=== PATIENT | male | born 1955 | race Caucasian/White ===

== ENCOUNTER → 2020-07-11 10:59 | Outpatient (CLI) | payer MEDICARE, SELFPAY ==
[2020-07-11 12:37] LABS: Hemoglobin A1c 5.8 % (3.8-5.6)
[2020-07-11 12:43] LABS: Microalbumin,Random Urine 6.1 mg/L (NO RANGE EST.); Microalbumin:Creatinine Ratio 30.2 mg/g CRE (<30 mg/g CRE)
[2020-07-11 12:59] LABS: ALB/GLOB Ratio 1.1 RATIO (0.9-2.4); AST(SGOT) 19 U/L (15-37); Alanine Aminotransfer ALT/SGPT 26 U/L (16-61); Albumin, Serum 3.9 g/dL (3.2-5.0); Alkaline Phosphatase 74 U/L (45-117); Anion Gap 10 (5-15); BUN 19 mg/dL (7-18); BUN/Creat Ratio 16.7 RATIO (10-20); Calcium,Total 9.1 mg/dL (8.5-10.1); Chloride 105 mmol/L (98-107); Cholesterol 175 mg/dL (200); Creatinine, Serum 1.14 mg/dL (0.70-1.30); EST Glomerular Filtration Rate 68 mL/min (>60); Est Glom Filt Rate - Afr Amer 83 mL/min (>60); Globulin 3.5 g/dL (2.2-4.2); Glucose 104 mg/dL (74-106); High Density Lipoprotein 48 mg/dL; Protein, Total 7.4 g/dL (6.4-8.2); Sodium Level 138 mmol/L (136-145); Triglycerides 118 mg/dL; Very Low Density Lipoprotein 24 mg/dL (5-40)
== END ==
DX: E11.9 Type 2 diabetes mellitus without complications (principal); I10 Essential (primary) hypertension; E78.5 Hyperlipidemia, unspecified
CPT/HCPCS: 36415; 80053; 80061; 82043; 82570; 83036

== ENCOUNTER 2021-07-12 10:29 | Outpatient (CLI) | payer MEDICARE, SELFPAY ==
[2021-07-12 10:53] LABS: Absolute Lymphocyte Count 2.41 X10^3/uL (0.83-4.51); Absolute Neutrophil Count 4.8 X10^3/uL (2.0-7.7); Basophil# 0.07 X10^3/uL; Basophil% 0.8 % (0-1); Eosinophil# 0.18 X10^3/uL; Eosinophils% 2.2 % (0-5); Hematocrit 48.7 % (40-54); Hemoglobin 16.7 g/dL (13.0-16.5); Lymphocyte # 2.41 X10^3/ul (0.83-4.51); Lymphocyte % 28.8 % (19-41); Mean Corp Hgb Conc 34.3 g/dL (32-36); Mean Corpuscular Hgb 31.8 pg (27.0-32.0); Mean Corpuscular Volume 92.8 fL (80-94); Mean Platelet Vol. 9.4 fl (6.2-12.0); Monocyte# 0.85 X10^3/uL; Monocyte% 10.2 % (0-10); NRBC Flagged by Analyzer 0 % (0-5); Neutrophil # 4.82 X10^3/uL (2.7-7.7); Neutrophil % 57.6 % (47-70); Platelet Count 313 K/mm3 (150-450); RBC Distribution Width CV 13.2 % (11.6-14.6); RBC Distribution Width SD 44.9 fl (35.1-43.9); Red Blood Count 5.25 M/mm3 (4.6-6.2); White Blood Count 8.4 K/mm3 (4.4-11.0)
[2021-07-12 11:33] LABS: ALB/GLOB Ratio 1.1 RATIO (0.9-2.4); AST(SGOT) 29 U/L (15-37); Alanine Aminotransfer ALT/SGPT 38 U/L (16-61); Alkaline Phosphatase 72 U/L (45-117); Anion Gap 5 (5-15); BUN 21 mg/dL (7-18); BUN/Creat Ratio 18.1 RATIO (10-20); Calcium,Total 8.6 mg/dL (8.5-10.1); Chloride 105 mmol/L (98-107); Cholesterol 179 mg/dL (200); Creatinine, Serum 1.16 mg/dL (0.70-1.30); EST Glomerular Filtration Rate 67 mL/min (>60); Est Glom Filt Rate - Afr Amer 81 mL/min (>60); Globulin 3.6 g/dL (2.2-4.2); Glucose 107 mg/dL (74-106); High Density Lipoprotein 44 mg/dL; PSA,Total - Annual Screen 2.04 ng/mL (0.00-4.00); Protein, Total 7.6 g/dL (6.4-8.2); Sodium Level 137 mmol/L (136-145); Thyroid Stim Hormone (TSH) 1.22 uIU/mL (0.358-3.74); Triglycerides 49 mg/dL; Very Low Density Lipoprotein 10 mg/dL (5-40)
== END 2021-07-12 23:59 | disposition home or self-care (01) ==
LOC: LAB 10:30
DX: E11.9 Type 2 diabetes mellitus without complications (principal); Z12.5 Encounter for screening for malignant neoplasm of prostate
CPT/HCPCS: 36415; 80053; 80061; 82043; 84153; 84443; 85025; G0103

== ENCOUNTER 2021-08-03 07:42 | Outpatient (CLI) | payer MEDICARE, SELFPAY ==
--- NOTE | 2021-08-03 07:45 | CT_ITS ---
STUDY: LOW DOSE CT LUNG CANCER SCREENING REASON FOR EXAM: Male, 66 years old. NICOTINE DEPENDENCE. The patient smoked 1 pack per day for 50 years. RADIATION DOSAGE (If Supplied By Facility): CTDIvol = ( 4.02 ) mGy, DLP = ( 133.91 ) mGycm TECHNIQUE: No contrast was administered. Low dose technique was utilized (average mAS-38 and kVp 120). 1.25 mm axial source images with a slice interval of 1.25-mm were reconstructed in lung windows. 2.5 mm axial source images with a slice interval of 2.5-mm were reconstructed in lung windows. 5.0 mm axial source images with a slice interval of 5.0-mm were reconstructed in soft tissue windows. Nodule measured using lung windows on PACS and/or independent workstation with automated measurement of minimum and maximum diameter. Nodule measurement reported as average diameter rounded to the nearest whole number. Growth is defined as an increase ins size of greater than 1.5 mm. COMPARISON: None. NODULES: No suspicious nodules are seen. Emphysema: Hyperinflation. Emphysematous changes more prominent in the upper lobes. Findings suggest some mild linear scarring in the anterior medial aspect of the right middle lobe as well as the lingular segment of the left upper lobe. Endobronchial lesion: None Aorta: Mild atherosclerotic plaque formation of the aortic arch. Coronary arteries: Coronary artery calcification. Heart: Unremarkable Pulmonary artery: Unremarkable Mediastinal nodes: Small mediastinal lymph nodes. Other chest and abdominal findings: CT/Low Dose CT Lung Screening IMPRESSION: Lung-RADS category 2 - Continue annual screening with LDCT in 12 months. IMPORTANT NOTES FOR USE: ACR Lung-RADS Version 1.1 Assessment Categories Release Date: 2018 Category: Coded 0-4 bases on nodule(s) with highest degree of suspicion. Negative screen is defined as categories 1 and 2; a positive screen is defined as categories 3 and 4. Category 3 and 4A nodules that are unchanged on interval CT should be coded as category 2, and individuals returned to screening in 12 months. Category 4X: Category 3 or 4 nodules with additional imaging findings that increase the suspicion of lung cancer, such as spiculation, GGN that doubles in size in 1 year, enlarged lymph notes, etc. Category Modifiers: S (significant finding unrelated to lung cancer) Electronically Signed: Todd Hunter MD at 12:57 EDT ,
== END 2021-08-03 23:59 | disposition home or self-care (01) ==
LOC: CT 07:43
PROVIDERS: Referring Provider Nurse Practitioner Adult Health; Visit Provider Nurse Practitioner Adult Health
DX: F17.210 Nicotine dependence, cigarettes, uncomplicated (principal)
CPT/HCPCS: 71271

== ENCOUNTER 2021-11-16 07:17 | Day surgery (SDC) | payer MEDICARE, SELFPAY ==
[2021-11-16] VITALS (8 sets, daily range): BP systolic 82–118; BP diastolic 59–78; PULSE 47–67; RESP 16–17; TEMP 36.1–36.6; O2SAT 94–98; BMI 31.4
--- NOTE | 2021-11-16 | COLBX_PTH ---
PATIENT: LAN GUADALUPE LOC: EN U#:[id number] AGE/SX: 66/M ROOM: RE11/16/[address]: Dr. Casey Rodriguez DO : 1955 BED: DIS: 11/16/2021 SPEC #: [id number] RECD: 11/16/21 11:07 STATUS: EVIN EDWARD #: [id number] KOBY: 11/16/21 00:[address]: Casey Rodriguez DEPT: SURGICAL PATHOLOGY RECD BY: Osiel Wood ENTERED: 11/16/21 11:07 SP TYPE: COLON BX BABAR DR: Adia Cochran, PSYCHIATRIC NURSING ASSISTANT-C [facility] Tissues: A - Transverse colon B - Rectum, NOS Procedures: Surgery Specimen Level IV HEADER OPERATION: Colonoscopy ? open access (MAC), biopsy PRE-OP DIAGNOSIS: Screening TISSUE SUBMITTED: A ? Transverse polyp biopsy, B ? Rectal polyp biopsy MICROSCOPIC DIAGNOSIS A. Transverse colon polyp, biopsy: Fragments of hyperplastic polyp. B. Rectal polyp, biopsy: Hyperplastic polyp. JESÚS:isaak 11/17/2021 MICROSCOPIC DESCRIPTION Slides are reviewed. GROSS DESCRIPTION A - Received in fixative is one container labeled with the patient's name and designated transverse polyp biopsy. The specimen consists of two irregular fragments of light whitten soft tissue that in aggregate measure 0.8 x 0.4 x 0.1 cm. The specimen is totally submitted in one cassette. B - Received in fixative is one container labeled with the patient's name and designated rectal polyp. The specimen consists of one irregular fragment of light whitten soft tissue that measures 0.3 x 0.2 x 0.1 cm. The specimen is totally submitted in one cassette. / JESÚS:isaak 11/16/2021 TC:1 [facility]: [id number] x2
--- NOTE | 2021-11-16 07:22 | HP.PCM_ITS ---
[facility] - General General Date of Admission: 11/16/21 Date of Service: 11/16/21 Chief Complaint: Screening colonoscopy [facility] Narrative CARLO GUADALUPE, is a very pleasant 66-year-old gentleman with past medical history of hypercholesterolemia type 2 diabetes and BPH who presents here for screening colonoscopy. He does not have any problems with his bowels. He does not have any nausea vomiting or diarrhea. Does have history of hemorrhoids whi ch are treated. His bowel patterns have been normal. Is not take any stool softeners or laxatives to go to the bathroom. He is not seeing any blood per rectum. [facility] Medical History (Updated 11/14/21 @ 11:02 by Sparkle Lowe) Arthritis Back pain Diabetes Heartburn High cholesterol History of pain when walking History of stress test Hypertension Injury of back Marijuana use Open wound Shortness of breath on exertion Smoker Wears dentures Wears glasses Home Medications ezetimibe 10 mg tablet 10 mg PO QHS 11/14/21 [History Last Taken Unknown] gemfibrozil 600 mg tablet 600 mg PO BID 11/14/21 [History Last Taken Unknown] hydrochlorothiazide 12.5 mg capsule 12.5 mg PO DAILY 11/14/21 [History Last Taken Unknown] lisinopril 20 mg tablet 20 mg PO QHS 11/14/21 [History Last Taken Unknown] metformin 750 mg tablet,extended release 24 hr 750 mg PO DAILY 11/14/21 [History Last Taken Unknown] tamsulosin 0.4 mg capsule 0.4 mg PO QHS 11/14/21 [History Last Taken Unknown] Allergy/AdvReac Type Severity Reaction Status Date / Time atorvastatin [From Lipitor] Allergy Severe Pain in Verified 11/14/21 10:38 joints Surgical History (Updated 11/14/21 @ 11:02 by Sparkle Lowe) Hx of bladder repair surgery Hx of hemorrhoidectomy Hx of pelvic surgery Hx of tonsillectomy Hx of umbilical hernia repair Social History Smoking Status: Current every day smoker tobacco type: cigarettes ROS Review of Systems ROS Unobtainable: other Constitutional Constitutional: Denies fatigue, fever(s), poor appetite, weight gain or weight loss ENT HEENT: Denies mouth lesions Cardiovascular Cardiovascular: Denies abdominal bloating, abdominal edema or abdominal pain Respiratory/Chest Respiratory/Chest: Denies change in mental status, change in phlegm color, chest congestion or chest tightness Gastrointestinal Gastrointestinal: Denies belching, bloating, change in bowel habits, change in stool character, chewing difficulty, coffee ground emesis, constipation, cramping, diarrhea, dyspepsia, dysphagia, early satiety, excessive flatus, fecal incontinence, heartburn, hematemesis, hematochezia, hemorrhoids, loose stools, melena, nausea, odynophagia, rectal bleeding, tenesmus, vomiting or weight changes Genitourinary Genitourinary: Denies abdominal discomfort, burning urination or itching Musculoskeletal Musculoskeletal: Reports as per HPI; Denies muscle weakness or myalgias Integumentary Integumentary: Denies jaundice Neurologic Neurologic: Denies lack of coordination or weakness Psychiatric Psychiatric: Denies confusion, depression, memory loss, mood swings, paranoia or suicidal ideation Endocrine Endocrinology: Denies systems reviewed and no addt'l complaints, except as documented Hematologic/Lymphatic Hematologic/Lymphatic: Denies anemia, easy bleeding, easy bruising or lymphadenopathy Allergic/Immunologic Allergic/Immunologic: Denies systems reviewed and no addt'l complaints, except as documented Physical Exam Const alert General Appearance: cooperative Orientation / Consciousness: oriented to person HEENT hearing grossly normal bilaterally Head and Scalp: normal to inspection Face and Sinus: face symmetric Nose: external nose normal Mouth: oral and palatal mucosa normal Eyes conjunctivae normal General Eye: normal appearance of both eyes Neck full ROM General: normal visual inspection Lymph Lymphatic: no lymphadenopathy noted Chest inspection of chest normal and palpation of chest normal Chest: symmetrical chest wall rise Resp normal respiratory effort Effort and Inspection: able to speak in complete sentences Cardio regular rate GI non-distended Percussion: normal to percussion Rectal Exam: deferred Neuro Speech: speech normal Gait (Neuro): normal gait Assessment & Plan Assessment/Plan (1) Encounter for screening for malignant neoplasm of colon: PLAN: Carlo will undergo a screening colonoscopy. He was explained alternatives, risk, benefits including not withstanding bleeding, infection, sepsis, perforation, need for emergent urgent . He will have an ASA of 1.
[2021-11-16] MEDS: Lactated Ringers 1,000 ML 15 ML IV (07:30)
[2021-11-16 08:20] LABS: Bedside Glucose 127 mg/dL (74-106)
--- NOTE | 2021-11-16 08:48 | OP.COLON_ITS ---
Patient Name: Carlo Hammonds Procedure Date: 11/16/2021 8:15 AM Date of : 1955 Age: 66 Procedure: Colonoscopy Indications: Screening for colorectal malignant neoplasm Providers: Casey Rodriguez DO Referring MD: Oksana Iyer [facility] Medicines: Monitored Anesthesia Care Patient Profile: This is a 66 year old male. Refer to note in patient chart for documentation of history and physical. Last Colonoscopy: 10 years ago. Complications: No immediate complications. Procedure: Pre-Anesthesia Assessment: - Prior to the procedure, a History and Physical was performed, and patient medications and allergies were reviewed. The patient is competent. The risks and benefits of the procedure and the sedation options and risks were discussed with the patient. All questions were answered and informed consent was obtained. Patient identification and proposed procedure were verified by the physician in the pre-procedure area. Mental Status Examination: alert and oriented. Airway Examination: normal oropharyngeal airway and neck mobility. Respiratory Examination: clear to auscultation. CV Examination: normal. Prophylactic Antibiotics: The patient does not require prophylactic antibiotics. Prior Anticoagulants: The patient has taken no previous anticoagulant or antiplatelet agents. ASA Grade Assessment: II - A patient with mild systemic disease. After reviewing the risks and benefits, the patient was deemed in satisfactory condition to undergo the procedure. The anesthesia plan was to use moderate sedation / analgesia (conscious sedation). Immediately prior to administration of medications, the patient was re-assessed for adequacy to receive sedatives. The heart rate, respiratory rate, oxygen saturations, blood pressure, adequacy of pulmonary ventilation, and response to care were monitored throughout the procedure. The physical status of the patient was re-assessed after the procedure. After I obtained informed consent, the scope was passed under direct vision. Throughout the procedure, the patient's blood pressure, pulse, and oxygen saturations were monitored continuously. The adult colonoscope was introduced through the anus and advanced to the terminal ileum. The colonoscopy was performed without difficulty. The patient tolerated the procedure well. The quality of the bowel preparation was adequate. Moderate Sedation: Moderate (conscious) sedation was personally administered by an anesthesia professional. The following parameters were monitored: oxygen saturation, heart rate, blood pressure, and response to care. Scope In: 8:23:47 AM Scope Withdrawal Time 0 hours 11 minutes 25 seconds Scope Out: 8:38:39 AM Total Procedure Duration Time 0 hours 14 minutes 52 seconds Findings: Hemorrhoids were found on perianal exam. A 5 mm polyp was found in the rectum transverse colon. The polyp was sessile. The polyp was removed with a jumbo cold forceps. Resection and retrieval were complete. Verification of patient identification for the specimen was done. Estimated blood loss was minimal. Impression: - Hemorrhoids found on perianal exam. - One 5 mm polyp in the rectum in the transverse colon, removed with a jumbo cold forceps. Resected and retrieved. Recommendation: - Repeat colonoscopy in 5 years for surveillance. - Return to GI office. - Continue present medications. Procedure Code(s): --- Professional --- 24616, Colonoscopy, flexible; with biopsy, single or multiple CPT copyright 2017 [employer]. All rights reserved. The codes documented in this report are preliminary and upon home health clinical liaison review may be revised to meet current compliance requirements. Casey Rodriguez DO 11/16/2021 8:48:23 AM This report has been signed electronically. Number of Addenda: 1 Note Initiated On: 11/16/2021 8:15 AM Addendum Number: 1 Addendum Date: 02/14/2022 6:28:16 AM MAC was used as sedation for this procedure. Casey Rodriguez DO 02/14/2022 6:28:20 AM This report has been signed electronically.
--- NOTE | 2021-11-16 08:49 | OP.CCLET_ITS ---
02/14/2022 Oksana Iyer [facility] Re : [facility] This procedure was performed on November. My impressions and recommendations are as follows: Impressions : - Hemorrhoids found on perianal exam. - One 5 mm polyp in the rectum in the transverse colon, removed with a jumbo cold forceps. Resected and retrieved. Recommendations : - Repeat colonoscopy in 5 years for surveillance. - Return to GI office. - Continue present medications. My findings are described in the full procedure note, which is enclosed. If I can be of further assistance, please feel free to contact me at . Sincerely, Casey Rodriguez, 11/16/2021 8:48:23 AM This report has been signed electronically.
== END 2021-11-16 09:43 | disposition home or self-care (01) ==
LOC: EN 07:17 → AC 07:18
PROVIDERS: Visit Provider Internal Medicine Gastroenterology
PROC: 0DJD8ZZ Inspection of Lower Intestinal Tract, Via Natural or Artificial Opening Endoscopic (ICD-10-PCS; CPT 45378; principal; 2021-11-16 08:25)
DX: Z12.11 Encounter for screening for malignant neoplasm of colon (principal); E11.9 Type 2 diabetes mellitus without complications; K63.5 Polyp of colon; K64.9 Unspecified hemorrhoids; I10 Essential (primary) hypertension; F17.210 Nicotine dependence, cigarettes, uncomplicated; M19.90 Unspecified osteoarthritis, unspecified site; F12.90 Cannabis use, unspecified, uncomplicated; Z79.899 Other long term (current) drug therapy; Z79.84 Long term (current) use of oral hypoglycemic drugs
CPT/HCPCS: 45380; 82962; 88305; J7120; J2405

== ENCOUNTER → 2022-06-19 | Outpatient (CLI) | payer MEDICARE, SELFPAY ==
[2022-06-19 09:53] LABS: Hematocrit 51.3 % (40-54); Hemoglobin 16.8 g/dL (13.0-16.5); Mean Corp Hgb Conc 32.7 g/dL (32-36); Mean Corpuscular Hgb 31.2 pg (27.0-32.0); Mean Corpuscular Volume 95.4 fL (80-94); Mean Platelet Vol. 9.6 fl (6.2-12.0); Platelet Count 322 K/mm3 (150-450); RBC Distribution Width CV 12.8 % (11.6-14.6); RBC Distribution Width SD 45.1 fl (35.1-43.9); Red Blood Count 5.38 M/mm3 (4.6-6.2)
[2022-06-19 11:08] LABS: ALB/GLOB Ratio 1.1 RATIO (0.9-2.4); AST(SGOT) 23 U/L (15-37); Alanine Aminotransfer ALT/SGPT 28 U/L (16-61); Albumin, Serum 4.2 g/dL (3.2-5.0); Alkaline Phosphatase 73 U/L (45-117); Anion Gap 7 (5-15); BUN 20 mg/dL (7-18); BUN/Creat Ratio 16.1 RATIO (10-20); Calcium,Total 9.2 mg/dL (8.5-10.1); Chloride 108 mmol/L (98-107); Cholesterol 161 mg/dL (200); Creatinine, Serum 1.24 mg/dL (0.70-1.30); EST Glomerular Filtration Rate 62 mL/min (>60); Est Glom Filt Rate - Afr Amer 75 mL/min (>60); Globulin 3.7 g/dL (2.2-4.2); Glucose 117 mg/dL (74-106); High Density Lipoprotein 43 mg/dL; Potassium 4.4 mmol/L (3.5-5.1); Protein, Total 7.9 g/dL (6.4-8.2); Sodium Level 139 mmol/L (136-145); Triglycerides 68 mg/dL; Very Low Density Lipoprotein 14 mg/dL (5-40)
[2022-06-19 11:18] LABS: Hemoglobin A1c 5.8 % (3.8-5.6)
[2022-06-19 13:29] LABS: Microalbumin,Random Urine < 5.0 mg/L (NO RANGE EST.)
== END | disposition home or self-care (01) ==
DX: E11.9 Type 2 diabetes mellitus without complications (principal); I10 Essential (primary) hypertension; E78.5 Hyperlipidemia, unspecified; N40.0 Benign prostatic hyperplasia without lower urinary tract symptoms
CPT/HCPCS: 36415; 80053; 80061; 82043; 83036; 84153; 85027

== ENCOUNTER → 2022-12-20 | Outpatient (CLI) | payer MEDICARE, SELFPAY ==
[2022-12-20 15:31] LABS: Anion Gap 4 (5-15); BUN 19 mg/dL (7-18); Calcium,Total 9.2 mg/dL (8.5-10.1); Chloride 108 mmol/L (98-107); Creatinine, Serum 1.36 mg/dL (0.70-1.30); EST Glomerular Filtration Rate 55 mL/min (>60); Est Glom Filt Rate - Afr Amer 67 mL/min (>60); Glucose 122 mg/dL (74-106); Microalbumin,Random Urine 11.3 mg/L (NO RANGE EST.); Potassium 4.1 mmol/L (3.5-5.1); Sodium Level 140 mmol/L (136-145)
[2022-12-20 15:41] LABS: Hemoglobin A1c 5.8 % (3.8-5.6)
== END | disposition home or self-care (01) ==
LOC: LAB 14:29
PROVIDERS: Referring Provider Nurse Practitioner Family; Visit Provider Nurse Practitioner Family
DX: E11.9 Type 2 diabetes mellitus without complications (principal)
CPT/HCPCS: 36415; 80048; 82043; 83036

== ENCOUNTER → 2023-06-26 | Outpatient (CLI) | payer MEDICARE, SELFPAY ==
[2023-06-26 14:35] LABS: Hematocrit 50.5 % (40-54); Hemoglobin 16.5 g/dL (13.0-16.5); Mean Corp Hgb Conc 32.7 g/dL (32-36); Mean Corpuscular Hgb 30.8 pg (27.0-32.0); Mean Corpuscular Volume 94.4 fL (80-94); Mean Platelet Vol. 9.9 fl (6.2-12.0); Platelet Count 342 K/mm3 (150-450); RBC Distribution Width CV 13.1 % (11.6-14.6); RBC Distribution Width SD 45.3 fl (35.1-43.9); Red Blood Count 5.35 M/mm3 (4.6-6.2); White Blood Count 10.2 K/mm3 (4.4-11.0)
[2023-06-26 15:18] LABS: ALB/GLOB Ratio 1.2 RATIO (0.9-2.4); AST(SGOT) 31 U/L (15-37); Alanine Aminotransfer ALT/SGPT 35 U/L (16-61); Albumin, Serum 4.1 g/dL (3.2-5.0); Alkaline Phosphatase 67 U/L (45-117); Anion Gap 7 (5-15); BUN 22 mg/dL (7-18); BUN/Creat Ratio 16.5 RATIO (10-20); Calcium,Total 9.5 mg/dL (8.5-10.1); Chloride 110 mmol/L (98-107); Cholesterol 154 mg/dL (200); Creatinine, Serum 1.33 mg/dL (0.70-1.30); EST Glomerular Filtration Rate 57 mL/min (>60); Est Glom Filt Rate - Afr Amer 69 mL/min (>60); Globulin 3.4 g/dL (2.2-4.2); Glucose 100 mg/dL (74-106); High Density Lipoprotein 41 mg/dL; PSA,Total - Annual Screen 1.61 ng/mL (0.00-4.00); Potassium 4.3 mmol/L (3.5-5.1); Protein, Total 7.5 g/dL (6.4-8.2); Sodium Level 141 mmol/L (136-145); Triglycerides 55 mg/dL; Very Low Density Lipoprotein 11 mg/dL (5-40)
[2023-06-26 15:22] LABS: Microalbumin,Random Urine 22.2 mg/L (NO RANGE EST.); Microalbumin:Creatinine Ratio 16.2 mg/g CRE (<30 mg/g CRE)
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
[2023-06-26 18:15] LABS: Hemoglobin A1c 6.1 % (3.8-5.6)
== END | disposition home or self-care (01) ==
LOC: LAB 13:56
DX: E11.9 Type 2 diabetes mellitus without complications (principal); E78.5 Hyperlipidemia, unspecified; Z12.5 Encounter for screening for malignant neoplasm of prostate
CPT/HCPCS: 36415; 80053; 80061; 82043; 82570; 83036; 84153; 85027; G0103

== ENCOUNTER → 2023-08-27 | Outpatient (CLI) | payer MEDICARE, SELFPAY ==
--- NOTE | 2023-08-27 06:48 | CT_ITS ---
STUDY: LOW DOSE CT LUNG CANCER SCREENING REASON FOR EXAM: Male, 68 years old. NICOTINE DEPENDENCE. Patient smoked 1 pack per day for 50 years. RADIATION DOSAGE (If Supplied By Facility): CTDIvol = ( 4.02 ) mGy, DLP = ( 137.43 ) mGycm TECHNIQUE: No contrast was administered. Low dose technique was utilized (average mAS-38 and kVp 120). 1.25 mm axial source images with a slice interval of 1.25-mm were reconstructed in lung windows. 2.5 mm axial source images with a slice interval of 2.5-mm were reconstructed in lung windows. 5.0 mm axial source images with a slice interval of 5.0-mm were reconstructed in soft tissue windows. COMPARISON: Comparison is made with prior study dated August 03, 2021. NODULES: No suspicious nodules are seen. Emphysema: Hyperinflation. Stable mild degree of emphysematous changes more prominent in the upper lobes. Endobronchial lesion: None Aorta: Atherosclerotic plaque formation of the aortic arch. CORONARY ARTERIES: Coronary artery calcification is seen. Heart: Unremarkable Pulmonary artery: Unremarkable Mediastinal nodes: Small benign-appearing mediastinal lymph nodes. Other chest and abdominal findings: CT/Low Dose CT Lung Screening IMPRESSION: Lung-RADS category 2 - Continue annual screening with LDCT in 12 months. IMPORTANT NOTES FOR USE: ACR Lung-RADS Version 1.1 Assessment Categories Release Date: 2018 Category: Coded 0-4 bases on nodule(s) with highest degree of suspicion. Negative screen is defined as categories 1 and 2; a positive screen is defined as categories 3 and 4. Category 3 and 4A nodules that are unchanged on interval CT should be coded as category 2, and individuals returned to screening in 12 months. Category 4X: Category 3 or 4 nodules with additional imaging findings that increase the suspicion of lung cancer, such as spiculation, GGN that doubles in size in 1 year, enlarged lymph notes, etc. Category Modifiers: S (significant finding unrelated to lung cancer) Electronically Signed: Todd Hunter MD at 9:35 EDT ,
== END | disposition home or self-care (01) ==
PROVIDERS: PCP Nurse Practitioner Family; Referring Provider Nurse Practitioner Family; Visit Provider Nurse Practitioner Family
DX: Z12.2 Encounter for screening for malignant neoplasm of respiratory organs (principal); F17.210 Nicotine dependence, cigarettes, uncomplicated
CPT/HCPCS: 71271

== ENCOUNTER → 2023-12-23 | Outpatient (CLI) | payer MEDICARE, SELFPAY ==
[2023-12-23 08:55] LABS: Absolute Lymphocyte Count 2.15 X10^3/uL (0.83-4.51); Absolute Neutrophil Count 3.8 X10^3/uL (2.0-7.7); Basophil# 0.07 X10^3/uL; Eosinophil# 0.14 X10^3/uL; Eosinophils% 2.1 % (0-5); Hematocrit 48.8 % (40-54); Hemoglobin 16.3 g/dL (13.0-16.5); Lymphocyte # 2.15 X10^3/ul (0.83-4.51); Lymphocyte % 31.6 % (19-41); Mean Corp Hgb Conc 33.4 g/dL (32-36); Mean Corpuscular Hgb 31.5 pg (27.0-32.0); Mean Corpuscular Volume 94.2 fL (80-94); Mean Platelet Vol. 9.6 fl (6.2-12.0); Monocyte# 0.67 X10^3/uL; Monocyte% 9.8 % (0-10); NRBC Flagged by Analyzer 0 % (0-5); Neutrophil # 3.76 X10^3/uL (2.7-7.7); Neutrophil % 55.2 % (47-70); Platelet Count 278 K/mm3 (150-450); RBC Distribution Width SD 45.2 fl (35.1-43.9); Red Blood Count 5.18 M/mm3 (4.6-6.2); White Blood Count 6.8 K/mm3 (4.4-11.0)
[2023-12-23 09:24] LABS: Hemoglobin A1c 5.9 % (3.8-5.6)
[2023-12-23 10:46] LABS: AST(SGOT) 27 U/L (15-37); Alanine Aminotransfer ALT/SGPT 29 U/L (16-61); Albumin, Serum 3.8 g/dL (3.2-5.0); Alkaline Phosphatase 68 U/L (45-117); Anion Gap 7 (5-15); BUN 22 mg/dL (7-18); BUN/Creat Ratio 17.7 RATIO (10-20); Calcium,Total 9.3 mg/dL (8.5-10.1); Chloride 108 mmol/L (98-107); Cholesterol 149 mg/dL (200); Creatinine, Serum 1.24 mg/dL (0.70-1.30); EST Glomerular Filtration Rate 62 mL/min (>60); Est Glom Filt Rate - Afr Amer 74 mL/min (>60); Globulin 3.7 g/dL (2.2-4.2); Glucose 112 mg/dL (74-106); High Density Lipoprotein 45 mg/dL; Potassium 4.1 mmol/L (3.5-5.1); Protein, Total 7.5 g/dL (6.4-8.2); Sodium Level 137 mmol/L (136-145); Triglycerides 96 mg/dL; Very Low Density Lipoprotein 19 mg/dL (5-40)
[2023-12-23 12:10] LABS: Microalbumin,Random Urine 7.6 mg/L (NO RANGE EST.)
== END | disposition home or self-care (01) ==
LOC: LAB 08:38
PROVIDERS: PCP Nurse Practitioner Family; Referring Provider Nurse Practitioner Family; Visit Provider Nurse Practitioner Family
DX: E11.9 Type 2 diabetes mellitus without complications (principal); E78.5 Hyperlipidemia, unspecified
CPT/HCPCS: 36415; 80053; 80061; 82043; 83036; 85025

== ENCOUNTER → 2024-06-24 | Outpatient (CLI) | payer MEDICARE, SELFPAY ==
[2024-06-24 13:08] LABS: Absolute Lymphocyte Count 1.86 X10^3/uL (0.83-4.51); Absolute Neutrophil Count 4.2 X10^3/uL (2.0-7.7); Basophil# 0.07 X10^3/uL; Eosinophil# 0.11 X10^3/uL; Eosinophils% 1.6 % (0-5); Hematocrit 50.8 % (40-54); Hemoglobin 16.5 g/dL (13.0-16.5); Lymphocyte # 1.86 X10^3/ul (0.83-4.51); Lymphocyte % 26.9 % (19-41); Mean Corp Hgb Conc 32.5 g/dL (32-36); Mean Corpuscular Hgb 30.4 pg (27.0-32.0); Mean Corpuscular Volume 93.6 fL (80-94); Mean Platelet Vol. 9.8 fl (6.2-12.0); Monocyte# 0.67 X10^3/uL; Monocyte% 9.7 % (0-10); NRBC Flagged by Analyzer 0 % (0-5); Neutrophil # 4.19 X10^3/uL (2.7-7.7); Neutrophil % 60.5 % (47-70); Platelet Count 311 K/mm3 (150-450); RBC Distribution Width CV 13.2 % (11.6-14.6); Red Blood Count 5.43 M/mm3 (4.6-6.2); White Blood Count 6.9 K/mm3 (4.4-11.0)
[2024-06-24 13:51] LABS: ALB/GLOB Ratio 1.1 RATIO (0.9-2.4); AST(SGOT) 21 U/L (15-37); Alanine Aminotransfer ALT/SGPT 30 U/L (16-61); Albumin, Serum 3.9 g/dL (3.2-5.0); Alkaline Phosphatase 65 U/L (45-117); Anion Gap 8 (5-15); BUN 25 mg/dL (7-18); BUN/Creat Ratio 18.4 RATIO (10-20); Chloride 107 mmol/L (98-107); Cholesterol 168 mg/dL (200); Creatinine, Serum 1.36 mg/dL (0.70-1.30); EST Glomerular Filtration Rate 55 mL/min (>60); Est Glom Filt Rate - Afr Amer 67 mL/min (>60); Globulin 3.7 g/dL (2.2-4.2); Glucose 112 mg/dL (74-106); High Density Lipoprotein 41 mg/dL; PSA,Total - Annual Screen 2.24 ng/mL (0.00-4.00); Potassium 4.1 mmol/L (3.5-5.1); Protein, Total 7.6 g/dL (6.4-8.2); Sodium Level 138 mmol/L (136-145); Triglycerides 105 mg/dL; Very Low Density Lipoprotein 21 mg/dL (5-40)
[2024-06-24 14:05] LABS: Microalbumin,Random Urine 14.6 mg/L (NO RANGE EST.)
== END | disposition home or self-care (01) ==
LOC: VSLAB 08:27
PROVIDERS: PCP Nurse Practitioner Family; Visit Provider Nurse Practitioner Family
DX: E11.9 Type 2 diabetes mellitus without complications (principal); E78.5 Hyperlipidemia, unspecified; I10 Essential (primary) hypertension; Z12.5 Encounter for screening for malignant neoplasm of prostate
CPT/HCPCS: 80053; 80061; 82043; 83036; 84153; 84443; 85025; G0103

== ENCOUNTER → 2024-08-27 | Outpatient (CLI) | payer MEDICARE, SELFPAY ==
--- NOTE | 2024-08-27 07:45 | CT_ITS ---
PROCEDURE: LOW DOSE CT LUNG SCREENING 08/27/2024 REASON FOR EXAM: NICOTINE DEPENDENCE, CIGARETTES, UNCOMPLICATED Current smoker. Patient has smoked 1 pack per day for 50 years. TECHNIQUE: Low Dose CT Lung screening without contrast. Coronal and Sagittal reconstruction series were provided. One or more dose reduction techniques were used (e.g., Automated exposure control, adjustment of the mA and/or kV according to patient size, use of iterative reconstruction technique). REFERENCE LINK: [facility] Lung-RADS RADIATION DOSE SUMMARY: CTDlvol: 4.02 mGy DLP: 134.91 mGycm COMPARISON: None. FINDINGS: PULMONARY NODULES: (Only nodules >3mm are reported) Nodules described below are on series 1 unless otherwise specified. Pulmonary Nodules: No suspicious nodules seen. Hardware:None Lymph Nodes:Small benign-appearing mediastinal lymph nodes. Heart and Vasculature:Coronary artery calcifications are noted.Atherosclerotic calcifications of the thoracic aorta. Thoracic aorta and pulmonary arteries have normal contours; noncontrast technique limits evaluation. Coronary Artery Calcifications: Present Lungs and Airways: Mild emphysematous changes are present. Pleura:Unremarkable Upper Abdomen:There is a 2.6 cm low-density rounded nodule in the right adrenal gland. This most likely represents adrenal adenoma. There is a 3.5 cm hypodense nodule in the anterior superior pole of the left kidney. Correlation with ultrasound recommended for further evaluation. Bones:Degenerative changes of the thoracic spine. CT/Low Dose CT Lung Screening IMPRESSION: Findings suggestive of right adrenal adenoma. Hypodense nodule in the upper pole of the left kidney. Assessment is not compl ete on this examination. Correlation with ultrasound recommended. Coronary artery calcification (CAC) is is present Lung-RADS Category: 2 BENIGN (BASED ON IMAGING FEATURES OR INDOLENT BEHAVIOR). RECOMMEND 12-MONTH SCREENING LDCT. Other Significant Findings: None. Reading Location: [facility]
== END | disposition home or self-care (01) ==
LOC: CT 07:42
PROVIDERS: PCP Nurse Practitioner Family; Referring Provider Nurse Practitioner Family; Visit Provider Nurse Practitioner Family
DX: Z12.2 Encounter for screening for malignant neoplasm of respiratory organs (principal); F17.210 Nicotine dependence, cigarettes, uncomplicated
CPT/HCPCS: 71271

== ENCOUNTER → 2024-09-11 | Outpatient (CLI) | payer MEDICARE, SELFPAY ==
--- NOTE | 2024-09-11 11:40 | US_ITS ---
PROCEDURE: KIDNEY AND BLADDER ([facility]), 09/11/2024 REASON FOR EXAM: CYST OF KIDNEY TECHNIQUE: Grayscale and color/spectral doppler ultrasound of the kidneys and bladder was performed. COMPARISON: 11/07/2016 ; note that images only are available for review, the report is not available at the time of the dictation. FINDINGS: Right kidney: 11.9 cm in length. Slightly echogenic appearance suspected. 11 x 12 x 7 mm nonobstructing intrarenal calculus. Cysts up to 3.2 x 3.7 x 4.0 cm mid to superiorly. No visualized calculus or hydronephrosis. Left kidney: 14.0 cm in length. Slightly echogenic appearance suspected. Small echogenic nonshadowing foci up to 6 x 7 x 5 mm, possible nonobstructing intrarenal calculus versus prominent renal sinus fat. Cysts up to 7.1 x 6.2 x 4.9 cm superiorly, largest with a probable thin internal septation. No visualized calculus or hydronephrosis. Bladder: Unremarkable. Estimated volume 277 mL. Other: Suspect echogenic appearance of the liver which may indicate steatosis.. US/Kidney and Bladder IMPRESSION: 1. Bilateral renal cysts up to 7.1 cm on the LEFT, largest with suggestion of a n internal septation. 2. Correlate for clinical and laboratory evidence of chronic medical liver and renal disease. 3. Additional description as above. Reading Location: [id number]
== END | disposition home or self-care (01) ==
LOC: US 11:37
PROVIDERS: PCP Nurse Practitioner Family; Referring Provider Nurse Practitioner Family; Visit Provider Nurse Practitioner Family
DX: N28.1 Cyst of kidney, acquired (principal)
CPT/HCPCS: 76770

== ENCOUNTER → 2024-09-15 | Outpatient (CLI) | payer MEDICARE, SELFPAY ==
[2024-09-21 16:08] LABS: Lyme IgG P18 Ab Absent (.); Lyme IgG P23 Ab Absent (.); Lyme IgG P28 Ab Absent (.); Lyme IgG P30 Ab Absent (.); Lyme IgG P39 Ab Absent (.); Lyme IgG P41 Ab Absent (.); Lyme IgG P45 Ab Absent (.); Lyme IgG P58 Ab Present (.); Lyme IgG P66 Ab Absent (.); Lyme IgG P93 Ab Present (.); Lyme IgG WB Interpretation Negative (Negative); Lyme IgM P23 Ab Absent (.); Lyme IgM P39 Ab Absent (.); Lyme IgM P41 Ab Absent (.); Lyme IgM WB Interpretation Negative (Negative)
== END | disposition home or self-care (01) ==
LOC: VSLAB 11:38
PROVIDERS: PCP Nurse Practitioner Family; Visit Provider Nurse Practitioner Family
DX: T14.8XXA Other injury of unspecified body region, initial encounter (principal); W57.XXXA Bitten or stung by nonvenomous insect and other nonvenomous arthropods, initial encounter
CPT/HCPCS: 36415; 86617

== ENCOUNTER → 2024-12-22 | Outpatient (CLI) | payer MEDICARE, SELFPAY ==
--- OUTSIDE RECORDS SUMMARY | 2024-12-22 09:58 | XMS RPT_ITS | CCD ---
Author Organization [facility] CliniSyvt Care Team Providers Care Coil Inspector Name Role Phone Fermín Jimenez Unavailable CHONG UNDERWOOD Unavailable Unavai labCHONG Donnelly Unavailable Unavai lable SYSTEM, PROVIDER NOT IN Unavailable Unavaila CHONG Duenas Unavailable Unavai lable VACCFERMÍN CONRAD Unavailable Unavailable SAPNA ROBBINS Unavailable Unavailable Fermín Jimenez Primary Care Provider Dimas ESCALONA, Adia K Unavailable [facility], Rocio Iyer Primary Care Pro [facility] Referring Provid er Friend, Dr. Peña Attending Provider FriendDr. Peña Other Provider ZENAIDA Cochran-C Adia Other Provider Dimas ESCALONA, Adia K Unavailable Dimas ESCALONA, Adia K Unavailable Rocio Iyer Primary Care Provider Rocio Iyer Primary Care Provider Unavailab mayito Roth CONTRACT GRAPHIC DESIGNER-C, Marisas Primary Care Provider Gonzalez CONTRACT GRAPHIC DESIGNER-CMarissa Attending Provider Gonzalez CONTRACT GRAPHIC DESIGNER-C, Marissa Referring Provider AMARILYS SMYTH Attending Unavailable AMARILYS SMYTH Referring Unavailable Bhanu CONTRACT GRAPHIC DESIGNER-CAfshan Attending Provider Bhanu CONTRACT GRAPHIC DESIGNER-CAfshan Referring Provider Gonzalez GALLOCMarissa Primary Care Unavailabl e Gonzalez VSC, Marissa Attending Unavailabl e Gonzalez VSC, Marissa Primary Care Unavailabl e Gonzalez VSC, Marissa Attending Unavailabl e Gonzalez VSC, Marissa Referring Unavailabl e Gonzalez VSC, Marissa Primary Care Unavailabl e Tannhof, Afshan Attending Unavailable Tannhof, Afshan Referring Unavailable Gonzalez VSC, Marissa Primary Care Unavailabl e Tannhof, Afshan Attending Unavailable Gonzalez VS, Marissa Attending Unavailabl e Gonzalez VSC, Marissa Referring Unavailabl e Gonzalez VSC, Marissa Primary Care Unavailabl e Gonzalez VSC, Marissa Attending Unavailabl e Allergies Allergy Classification Reported Allergen(s) Allergy Type Date of Onset Reaction(s) Facility (15 sources) atorvastatin; Translations: [ATORVASTATIN] Drug Allergy 5 Pain in joints [facility] (6 sources) Bisoprolol / hydroCHLOROthiazi de; Translations: [BISOPROLOL-HYDRO CHLOROTHIAZIDE] Drug Allergy 7 Other: See Comments [facility] Work Phone: (6 sources) Pravastatin; Translations: [PRAVASTATIN] Drug Allergy 7 Myalgia [facility] Work Phone: (6 sources) Simvastatin; Translations: [SIMVASTATIN] Drug Allergy 7 Myalgia [facility] Work Phone: (1 source) atorvastatin Drug Allergy 2 [facility] Repository Medications Current Medications Medication Drug Class(es) Dates [...] for pain. 10 tablet 0 02/18/2018 Active Start: 02-18-2018 End: 02-18-2018 take 1 tablet by mouth every twenty-four hours as need ed ascorbic acid 1000 mg oral tablet (2 sources) take 1 tablet by mouth once daily ascorbic acid, vitamin C, (vitamin C) 1000 MG tablet Take 1,000 mg by mouth daily. 0 Active aspirin 81 mg delayed release oral tablet (7 sources) Nonsteroidal Anti-inflammatory Drug Start: 6 take 1 tablet by mouth once daily aspirin, enteric coated (ASPIR-LOW) 81 mg EC tablet Indications: Mixed hyperlipidemia Take 1 tablet by mouth once daily. 0 08/23/2015 Active aspirin 81 mg ch ewable tablet Chew and Swallow 81 mg daily with breakfast. 0 Active Comment on above: Take 1 tablet by zoey th once daily. 12 hr buPROPion hydrochloride 150 mg extended release oral tablet (2 sources) Aminoketone take 1 tablet by mouth twice daily buPROPion (WELLBUTRIN SR, ZYBAN) 150 MG 12 hr tablet Take 150 mg by mouth 2 (two) times a day. 0 Active calcium carbonate 1500 mg oral tablet (2 sources) calcium carbonat e (OS-KRISTAL) 600 mg calcium (1,500 mg) tablet Take 1,200 mg by mouth daily . 0 Active doxazosin 2 mg oral tablet (5 sources) alpha-Adrenergic Michael Start: take 1 tablet by mouth once daily at bedtime for hypertension doxazosin (CARDURA) 2 mg tablet Indications: Essential hypertension with goal blood pressure less than 140/90 , Urinary urgency , BPH w urinary obs/LUTS Take 1 tablet by mouth daily at bedtime. For high blood pressure. 90 tablet 3 01/09/2017 Active Comment on above: Take 1 tablet by zoey th daily at bedtime. For high blood pressure. ezetimibe 10 mg oral tablet (11 sources) Dietary Cholesterol Absorption Inhibitor Start: take 1 tablet by mouth at bedtime Ezetimibe 10 mg tablet Active 10 mg PO AT BEDTIME November 14, 2021 12:00am Comment on above: Take 1 tablet by zoey th once daily. For cholesterol. gemfibrozil 600 mg oral tablet (10 sources) Peroxisome Proliferator Receptor alpha Agonist Start: take 1 tablet by mouth twice daily Gemfibrozil 600 mg tablet Active 600 mg PO TWICE A DAY November 14, 2021 12:00am Geriatric Multivitamins-Min tab (4 sources) Geriatric Multivitamins-Min tab Take by mouth. Active Geriatric Multiv itamins-Min tab Take by mouth. 0 Active Comment on above: Take by mouth. hydroCHLOROthiazide 12.5 mg oral capsule (13 sources) Thiazide Diuretic Start: 2016 take 1 capsule by mouth once daily Hydrochlorothiazide 12.5 mg capsule Active 12.5 mg PO DAILY November 14, 2021 12:00am Comment on above: Take 1 capsule by [facility] once daily. lisinopril 20 mg oral tablet (10 sources) Angiotensin Converting Enzyme Inhibitor Start: 2021 take 1 tablet by mouth at bedtime Lisinopril 20 mg tablet Active 20 mg PO AT BEDTIME November 14, 2021 12:00am Comment on above: Take 20 mg by mouth once daily. Hdhpqlhu-Hhe-Byyuz Acid 300 McG-Lycopene 600 McG-Lutein 300 McG Tablet (1 source) take 1 tablet by mouth once daily hmwwkcmi-fkq-RE-lycopen- lutein (CENTRUM SILVER MEN) 300-600-300 mcg Tab Take 1 tablet by mouth daily. Active 24 hr metFORMIN hydrochloride 750 mg extended release oral tablet (10 sources) Biguanide Start: 2021 take 1 tablet by mouth once daily Metformin 750 mg tablet extended release 24 hr Active 750 mg PO DAILY November 14, 2021 12:00am take 1 tablet by [facility] once daily at breakfast metFORMIN (GLUCOPHAGE) 500 mg tablet Elieser e 500 mg by mouth daily with breakfast. Active Comment on above: Take 500 mg by mouth daily with breakfast. wnccstkg-ytw-SY-lyco pen-lutein (CENTRUM SILVER MEN) 300-600-300 mcg Tab (1 source) take 300-600 tablets by mouth once daily ixsxraom-xsm-MG-lyco pen-lutein (CENTRUM SILVER MEN) 300-600-300 mcg Tab Take 1 tablet by mouth daily. 0 Active [place]-3 Fatty Acids-Vitamin E (FISH OIL) 1,000 mg cap (5 sources) [place]-3 Fatty Acids-Vitamin E (FISH OIL) 1,000 mg cap Take 1 capsule by mouth. Active [place]-3 Fatty Ac ids-Vitamin E (FISH OIL) 1,000 mg cap Take 1 capsule by mouth. 0 Active Comment on above: Take 1 capsule by [facility]. sulfamethoxazole 400 mg / trimethoprim 80 mg oral tablet (1 source) Dihydrofolate Reductase Inhibitor Antibacterial, Sulfonamide Antimicrobial Start: End: take 1 tablet by mouth twice daily sulfamethoxazole-tr imethoprim (BACTRIM,SEPTRA) 400-80 mg per tablet Indications: Hematuria due to chronic cystitis Take 1 (one) tablet by mouth 2 (two) times a day for 10 days. 20 tablet 0 02/18/2018 02/28/2018 Active tamsulosin hydrochloride 0.4 mg oral capsule (10 sources) alpha-Adrenergic Michael Start: 022 take 1 capsule by mouth at bedtime Tamsulosin 0.4 mg capsule Active 0.4 mg PO AT BEDTIME November 14, 2021 12:00am Comment on above: Take 0.4 mg by mouth once daily. therapeutic multivitamin (THERAGRAN) tablet (1 source) take 1 tablet by mouth once daily therapeutic multivitamin (THERAGRAN) tablet Take 1 tablet by mouth daily . 0 Active Therapeutic Multivitamin Tablet (1 source) take 1 tablet by mouth once daily therapeutic multivitamin (THERAGRAN) tablet Take 1 tablet by mouth daily . Active UNABLE TO FIND (6 sources) UNABLE TO FIND Ageless male (OTC testosterone booster) daily. 0 Active UNABLE TO FIND T innitus 911 OTC daily. 0 Active UNABLE TO FIND R eplenish 911 (OTC) daily. 0 Active UNABLE TO FIND A geless male (OTC testosterone booster) daily. Active UNABLE TO FIND T innitus 911 OTC daily. Active UNABLE TO FIND R eplenish 911 (OTC) daily. Active vit C/vit E/lutein/min/omega -3 (OCUVITE ORAL) (2 sources) take 1 tablet by mouth once daily, then take 3 tablets by mouth vit C/vit E/lutein/min/omega-3 (OCUVITE ORAL) Take 1 tablet by mouth daily . 0 Active take 1 tablet by zoey th once daily, then take 3 tablets by mouth vit C/vit E/lutein/min/omega-3 (OCUVITE ORAL) Take 1 tablet by mouth daily . Active zinc gluconate 50 mg oral tablet (2 sources) take 1 tablet by zoey th once daily zinc gluconate 50 mg tablet Take 50 mg by mouth daily. 0 Active Completed/Discontinued Medications Medication Drug Class(es) Dates Sig (Normalized) Sig (Original) calcium chloride 0.0014 meq/ml / potassium chloride 0.004 meq/ml / sodium chloride 0.103 meq/ml / sodium lactate 0.028 meq/ml injectable solution (1 source) Start: 02-18-2018 End: 02-18-2018 lactated Ringers infusion Geriatric Multivitamins-Min (MULTI-VIT 55 PLUS) Tab (1 source) Geriatric Multivitamins-Min (MULTI-VIT 55 PLUS) Tab Take by mouth. 0 Active Comment on above: Take by mouth. Hydromorphone 0.5 Mg/Ml In 0.9 % Sodium Chloride Intravenous Syringe (2 sources) Opioid Agonist Start: 02-18-2018 End: 02-18-2018 HYDROmorphone (DILAUDID) 0.5 mg/mL injection - ADS Override Pull Start: 02-18-2018 End: 02-18-2018 labetalol hydrochloride 5 mg/ml injectable solution (1 source) beta-Adrenergic Michael Start: 02-18-2018 End: 02-18-2018 Multivitamin With Minerals Tablet (1 source) End: 02-17-2018 take 1 tablet by mouth once daily multivitamin with minerals tablet Take 1 tablet by mouth daily . 02/17/2018 Discontinued naloxone (NARCAN) injection 0.1 mg (1 source) Start: 02-18-2018 End: 02-18-2018 naloxone (NARCAN) injection 0.1 mg 2 ml ondansetron 2 mg/ml injection (1 source) Serotonin-3 Receptor Antagonist Start: 02-18-2018 End: 02-18-2018 oxyCODONE hydrochloride 20 mg/ml oral solution (1 source) Opioid Agonist Start: 02-18-2018 End: 02-18-2018 take 10 mg under the tongue every twenty-four hours as needed Problems Active Problems Problem Classification Problem Date Documented Date Episodic/Chronic Acquired foot deformities (2 sources) Hammer toe; Translations: [Other hammer toe(s) (acquired), left foot] Chronic Acquired foot deformities (2 sources) Hammer toe; Translations: [Other hammer toe(s) (acquired), right foot] Chronic Diabetes mellitus with complications (2 sources) Diabetic mononeuropathy; Translations: [Diabetes mellitus due to underlying condition with diabetic mononeuropathy] Chronic Diabetes mellitus without complication (2 sources) Type 2 diabetes mellitus without complications; Translations: [Type 2 diabetes mellitus without complications] Onset: 12-23-2023 Chronic Disorders of lipid metabolism (8 sources) Mixed hyperlipidemia; Translations: [Mixed hyperlipidemia] Onset: 08-19-2015 08-21-2015 Chronic Essential hypertension (7 sources) Essential (primary) hypertension; Translations: [Essential hypertension] Onset: 05-23-2016 05-23-2016 Chronic Genitourinary symptoms and ill-defined conditions (5 sources) Urge incontinence of urine; Translations: [Urge incontinence] Onset: 01-09-2017 01-09-2017 Chronic Genitourinary symptoms and ill-defined conditions (2 sources) Retention of urine, unspecified; Translations: [Retention of urine, unspecified] Onset: 02-14-2018 Episodic Hyperplasia of prostate (5 sources) Benign prostatic hypertrophy with outflow obstruction; Translations: [Benign prostatic hyperplasia with lower urinary tract symptoms] Onset: 01-09-2017 01-09-2017 Chronic Other congenital anomalies (1 source) Accessory right tarsal navicular bone; Translations: [Other congenital malformations of lower limb(s), including pelvic girdle] Chronic Other diseases of kidney and ureters (1 source) Cyst of kidney, acquired; Translations: [Cyst of kidney, acquired] Onset: 09-16-2024 Episodic Other injuries and conditions due to external causes (1 source) Other injury of unspecified body region, initial encounter; Translations: [Other injury of unspecified body region, initial encounter] Onset: 09-21-2024 Episodic Other male genital disorders (5 sources) Male erectile dysfunction, unspecified; Translations: [Impotence of organic origin] Onset: 12-22-2015 12-22-2015 Chronic Other nutritional; endocrine; and metabolic disorders (2 sources) Obesity, unspecified; Translations: [Obesity, unspecified] Onset: 02-14-2018 Chronic Other screening for suspected conditions (not mental disorders or infectious disease) (13 sources) Raised prostate specific antigen; Translations: [Elevated prostate specific antigen [PSA]] Onset: 08-26-2015 08-26-2015 Episodic Substance-related disorders (7 sources) Nicotine dependence, cigarettes, uncomplicated; Translations: [Tobacco user] Onset: 08-23-2015 08-23-2015 Chronic Urinary tract infections (2 sources) Other chronic cystitis with hematuria; Translations: [Other chronic cystitis with hematuria] Onset: 02-18-2018 Chronic Past or Other Problems Problem Classification Problem Date Documented Da te Episodic/Chronic Diabetes mellitus without complication (5 sources) Disorder of glucose metabolism; Translations: [Other abnormal glucose] Onset: 06-26-2016 06-26-2016 Episodic Hemorrhoids (2 sources) Hemorrhoids; Translations: [Unspecified hemorrhoids] Onset: 03-05-2012 Resolved: 08-23-2015 08-23-2015 Episodic Other diseases of bladder and urethra (2 sources) Urethral stricture; Translations: [Unspecified urethral stricture, male, unspecified site] Onset: 05-27-2006 Resolved: 08-23-2015 08-23-2015 Episodic Other ear and sense organ disorders (5 sources) Tinnitus of left ear; Translations: [Tinnitus, left ear] Onset: 08-01-2005 06-26-2016 Episodic Other male genital disorders (2 sources) Secondary erectile dysfunction; Translations: [Male erectile dysfunction, unspecified] Onset: 08-01-2005 Resolved: 08-23-2015 08-23-2015 Chronic Unclassified (1 source) Hematuria due to chronic cystitis Results Test Name Value Interpretation Reference Range Facility Lyme Antibodies,W [place] Lyme Additional Comment Normal . [facility] Comment on above: Result Comment: Per CDC criteria, the Lyme IgG Immunoblot is interpreted as positive if IgG-class antibodies are detected to 5 or more B. burgdorferi proteins, and the Lyme IgM Immunoblot is interpreted as positive if IgM-class antibodies are detected to 2 or more B. burgdorferi proteins. Immunoblot patterns not meeting these criteria should not be interpreted as positive. Epitopes from certain B. burgdorferi proteins (e.g., p41) are conserved across other bacteria, which may lead to the detection of IgM-and/or IgG class antibodies on the Lyme disease immunoblots in patients without Lyme disease. Immunoblot should only be ordered on specimens that are positive or equivocal by an FDA-licensed Lyme disease antibody screening test (e.g., EIA). Results of the Lyme IgM immunoblot should not be considered in patients with 30 or more days of symptoms. Performed at: - [address] [id number] Washing Machine Operator: Corey Mendez MD, Phone: [phone] Performed By: #### L [id number] #### [facility] [address] [place], [place], [address] LYME IgG INTERP Negative Normal Negative [facility] Comment on above: Performed By: #### L [id number] #### [facility] [address] [place], [address] LYME IgM INTERP Negative Normal Negative [facility] Comment on above: Result Comment: Dat ruiz Note: Lyme immunoblot alone is not recommended for the diagnosis of Lyme disease. Current guidelines recommend the use of a two-tiered approach to Lyme serology testing to improve the sensitivity and specificity of testing. [facility] test code 650579 Lyme Disease Serology with Reflex to aid in the diagnosis of Lyme Disease. Performed By: #### L [id number] #### [facility] [address] [place], [address] P18 Ab Absent Normal . [facility] Comment on above: Performed By: #### L [id number] #### [facility] [address] [place], [address] P23 Ab Absent Normal . [facility] Comment on above: Performed By: #### L [id number] #### [facility] [address] [place], [address] P28 Ab Absent Normal . [facility] Comment on above: Performed By: #### L [id number] #### [facility] [address] [place], [address] P30 Ab Absent Normal . [facility] Comment on above: Performed By: #### L [id number] #### [facility] [address] [place], [address] P39 Ab Absent Normal . [facility] Comment on above: Performed By: #### L [id number] #### [facility] [address] [place], [address] P41 Ab Absent Normal . [facility] Comment on above: Performed By: #### L [id number] #### [facility] [address] [place], [address] P45 Ab Absent Normal . [facility] Comment on above: Performed By: #### L [id number] #### [facility] [address] [place], [address] P58 Ab Present Normal . [facility] Comment on above: Performed By: #### L [id number] #### [facility] [address] [place], [address] P66 Ab Absent Normal . [facility] Comment on above: Performed By: #### L [id number] #### [facility] [address] [place], [address] P93 Ab Present Normal . [facility] Comment on above: Performed By: #### L [id number] #### [facility] [address] [place], [address] Kidney and Bladderon 025 Kidney and Bladder [facility] Imaging Services [address] [place] [address] Kidney and Bladder MR#: [id number] Acct: [id number] Name: LAN GUADALUPE Rep #: [id number] : 1955 M 69 From: Bebo Triana MD PCP: REBECCA Jnesen, OUMAR Status: REG CLI Study: Kidney and Bladder Date of Exam: 09/11/24 Exam# [id number] Ordering Dr: Afshan Drummond CONTRACT GRAPHIC DESIGNER-C ADDENDUM by Dr. Bebo Triana MD on 09/14/24 at 1914 As a technical note, note that spectral Doppler imaging was not performed. END OF ADDENDUM Reading Location: [id number] 09/14/241914 Date cc: OUMAR Drummond; [facility] OUMAR Roth * Signed PROCEDURE: KIDNEY AND BLADDER (USKI), 09/11/2024 REASON FOR EXAM: CYST OF KIDNEY TECHNIQUE: Grayscale and color/spectral doppler ultrasound of the kidneys and bladder was performed. COMPARISON: 11/07/2016 ; note that images only are available for review, the report is not available at the time of the dictation. FINDINGS: Right kidney: 11.9 cm in length. Slightly echogenic appearance suspected. 11 x 12 x 7 mm nonobstructing intrarenal calculus. Cysts up to 3.2 x 3.7 x 4.0 cm mid to superiorly. No visualized calculus or hydronephrosis. Left kidney: 14.0 cm in length. Slightly echogenic appearance suspected. Small echogenic nonshadowing foci up to 6 x 7 x 5 mm, possible nonobstructing intrarenal calculus versus prominent renal sinus fat. Cysts up to 7.1 x 6.2 x 4.9 cm superiorly, largest with a probable thin internal septation. No visualized calculus or hydronephrosis. Bladder: Unremarkable. Estimated volume 277 mL. Other: Suspect echogenic appearance of the liver which may indicate steatosis.. US/Kidney and Bladder IMPRESSION: 1. Bilateral renal cysts up to 7.1 cm on the LEFT, largest with suggestion of an internal septation. 2. Correlate for clinical and laboratory evidence of chronic medical liver and renal disease. 3. Additional description as above. Reading Location: [facility] CC: OUMAR Drummond; [facility] OUMAR Roth Wheel Grinder: Signed Normal [facility] Low Dose CT Lung Screeningon 08-27-[address] Lung Screening [facility] Imaging Services [address] [place] [address] Lung Screening MR#: [id number] Acct: [id number] Name: LAN GUADALUPE Rep #: [id number] : 1955 M 69 From: Todd perla MD PCP: Marissa Roth, REBECCA, OUMAR Status: [facility] CLI Study: Low Dose CT Lung Screening Date of Exam: 08/27 Exam# [id number] Ordering Dr: Marissa Roth [facility] ZENAIDA-Floresita PROCEDURE: LOW DOSE CT LUNG SCREENING 08/27/2024 REASON FOR EXAM: NICOTINE DEPENDENCE, CIGARETTES, UNCOMPLICATED Current smoker. Patient has smoked 1 pack per day for 50 years. TECHNIQUE: Low Dose CT Lung screening without contrast. Coronal and Sagittal reconstruction series were provided. One or more dose reduction techniques were used (e.g., Automated exposure control, adjustment of the mA and/or kV according to patient size, use of iterative reconstruction technique). REFERENCE LINK: [facility] Lung-RADS RADIATION DOSE SUMMARY: CTDlvol: 4.02 mGy DLP: 134.91 mGycm COMPARISON: None. FINDINGS: PULMONARY NODULES: (Only nodules >3mm are reported) Nodules described below are on series 1 unless otherwise specified. Pulmonary Nodules: No suspicious nodules seen. Hardware:None Lymph Nodes:Small benign-appearing mediastinal lymph nodes. Heart and Vasculature:Coronary artery calcifications are noted.Atheroscleroti c calcifications of the thoracic aorta. Thoracic aorta and pulmonary arteries have normal contours; noncontrast technique limits evaluation. Coronary Artery Calcifications: Present Lungs and Airways: Mild emphysematous changes are present. Pleura:Unremarkable Upper Abdomen:There is a 2.6 cm low-density rounded nodule in the right adrenal gland. This most likely represents adrenal adenoma. There is a 3.5 cm hypodense nodule in the anterior superior pole of the left kidney. Correlation with ultrasound recommended for further evaluation. Bones:Degenerative changes of the thoracic spine. CT/Low Dose CT Lung Screening IMPRESSION: Findings suggestive of right adrenal adenoma. Hypodense nodule in the upper pole of the left kidney. Assessment is not complete on this examination. Correlation with ultrasound recommended. Coronary artery calcification (CAC) is is present Lung-RADS Category: 2 BENIGN (BASED ON IMAGING FEATURES OR INDOLENT BEHAVIOR). RECOMMEND 12-MONTH SCREENING LDCT. Other Significant Findings: None. Reading Location: [facility] CC: [facility] OUMAR Roth Wheel Grinder: Signed Normal [facility] Absolute lymphocyte countOrd ered By: [facility] Marissa Roth on 06-24-2024 Lymphocytes Auto (Unsp spec) [#/Vol] 1.86 10*3/uL 0.83-4.51 [facility] Absolute neutrophil countOrd ered By: [facility] Marissa Roth on 06-24-2024 Neutrophils (Bld) [#/Vol] 4.2 10*3/uL 2.0-7.7 [facility] Albumin to globulin ratioOrd ered By: [facility] Marissa Roth on 06-24-2024 Albumin/Globulin [Mass ratio] 1.1 {ratio} 0.9-2.4 [facility] Automated lymphocyte count a s percentage of total leukocytesOrdered By: [facility] Marissa Roth on 06-24-2024 Lymphocytes/100 WBC Auto (Unsp spec) 26.9 % -41 [facility] Basophil percentageOrdered B y: [facility] Presbyterianshilpa Roth on 06-24-2024 Basophils/100 WBC (Bld) 1.0 % 0-1 [facility] Bilirubin, totalOrdered By: [facility] Presbyterianshilpa Roth on 06-24-2024 Bilirubin [Mass/Vol] 0.50 mg/dL 0.20-1.00 [facility] Comment on above: For patients on eltr ombopag therapy, use of Dimension [place] TBIL is not recommended. Blood urea nitrogen (BUN)/cr eatinine ratioOrdered By: [facility] Marissa Roth on 06-24-2024 Urea nitrogen/Creatinine [Mass ratio] 18.4 mg/mg 10-20 [facility] CBC W/Diff, Automatedon 06-13 Absolute Lymph 1.86 X10 3/uL Normal 0.83-4.51 [facility] Comment on above: Performed By: #### L 100.0100, L501.9910, L502.0500, L501.9985, L500.4100, L500.4050, L501.9520 #### [facility] [place] [facility] [place], [address] Absolute Neut 4.2 X10 3/uL Normal 2.0-7.7 [facility] Comment on above: Performed By: #### L 100.0100, L501.9910, L502.0500, L501.9985, L500.4100, L500.4050, L501.9520 #### [facility] [address] [place], [address] Basophils/100 WBC (Bld) 1.0 % Normal 0-1 [facility] Comment on above: Performed By: #### L 100.0100, L501.9910, L502.0500, L501.9985, L500.4100, L500.4050, L501.9520 #### [facility] [address] [place], [address] Eosinophils/100 WBC (Bld) 1.6 % Normal 0-5 [facility] Comment on above: Performed By: #### L 100.0100, L501.9910, L502.0500, L501.9985, L500.4100, L500.4050, L501.9520 #### [facility] [address] [place], [address] Erythrocyte distribution width (RBC) [Ratio] 13.2 % Normal 11.6-14.6 [facility] Comment on above: Performed By: #### L 100.0100, L501.9910, L502.0500, L501.9985, L500.4100, L500.4050, L501.9520 #### [facility] [address] [place], [address] Hematocrit (Bld) [Volume fraction] 50.8 % Normal 40-54 [facility] Comment on above: Performed By: #### L 100.0100, L501.9910, L502.0500, L501.9985, L500.4100, L500.4050, L501.9520 #### [facility] [address] [place], [address] Hemoglobin (Bld) [Mass/Vol] 16.5 g/dL Normal 13.0-16.5 [facility] Comment on above: Performed By: #### L 100.0100, L501.9910, L502.0500, L501.9985, L500.4100, L500.4050, L501.9520 #### [facility] [address] [place], [address] IG% 0.300 Normal 0.0-0.9 [facility] Comment on above: Result Comment: IG% - Immature Granulocytes (promyelocytes, myelocytes and metamyelocytes) > 1% indicates that a LEFT SHIFT is Present. Performed By: #### L 100.0100, L501.9910, L502.0500, L501.9985, L500.4100, L500.4050, L501.9520 #### [facility] [address] [place], [address] Lymphocytes/100 WBC (Bld) 26.9 % Normal 19-41 [facility] Comment on above: Performed By: #### L 100.0100, L501.9910, L502.0500, L501.9985, L500.4100, L500.4050, L501.9520 #### [facility] [address] [place], [address] MCH (RBC) [Entitic mass] 30.4 pg Normal 27.0-32.0 [facility] Comment on above: Performed By: #### L 100.0100, L501.9910, L502.0500, L501.9985, L500.4100, L500.4050, L501.9520 #### [facility] [address] [place], [address] MCHC (RBC) [Mass/Vol] 32.5 g/dL Normal 32-36 [facility] Comment on above: Performed By: #### L 100.0100, L501.9910, L502.0500, L501.9985, L500.4100, L500.4050, L501.9520 #### [facility] [address] [place], [address] MCV (RBC) [Entitic vol] 93.6 fL Normal 80-94 [facility] Comment on above: Performed By: #### L 100.0100, L501.9910, L502.0500, L501.9985, L500.4100, L500.4050, L501.9520 #### [facility] [address] [place], [address] Monocytes/100 WBC (Bld) 9.7 % Normal 0-10 [facility] Comment on above: Performed By: #### L 100.0100, L501.9910, L502.0500, L501.9985, L500.4100, L500.4050, L501.9520 #### [facility] [address] [place], [address] Neutrophils/100 WBC (Bld) 60.5 % Normal 47-70 [facility] Comment on above: Performed By: #### L 100.0100, L501.9910, L502.0500, L501.9985, L500.4100, L500.4050, L501.9520 #### [facility] [address] [facility] [place], [address] Nucleated RBC (Bld) [#/Vol] 0 10*3/uL Normal 0-5 [facility] Comment on above: Performed By: #### L 100.0100, L501.9910, L502.0500, L501.9985, L500.4100, L500.4050, L501.9520 #### [facility] [address] [facility] [place], [address] Platelet mean volume (Bld) [Entitic vol] 9.8 fL Normal 6.2-12.0 [facility] Comment on above: Performed By: #### L 100.0100, L501.9910, L502.0500, L501.9985, L500.4100, L500.4050, L501.9520 #### [facility] [address] [place], [address] Platelets (Bld) [#/Vol] 311 10*3/uL Normal 150-450 [facility] Comment on above: Performed By: #### L 100.0100, L501.9910, L502.0500, L501.9985, L500.4100, L500.4050, L501.9520 #### [facility] [address] [place], [address] RBC (Bld) [#/Vol] 5.43 10*6/uL Normal 4.6-6.2 [facility] Comment on above: Performed By: #### L 100.0100, L501.9910, L502.0500, L501.9985, L500.4100, L500.4050, L501.9520 #### [facility] [address] [place], [address] RDW SD 45.0 fl High 35.1-43.9 [facility] Comment on above: Performed By: #### L 100.0100, L501.9910, L502.0500, L501.9985, L500.4100, L500.4050, L501.9520 #### [facility] [address] [place], [address] WBC (Bld) [#/Vol] 6.9 10*3/uL Normal 4.4-11.0 [facility] Comment on above: Performed By: #### L 100.0100, L501.9910, L502.0500, L501.9985, L500.4100, L500.4050, L501.9520 #### [facility] [address] [place], [address] Carbon dioxide measurementOr dered By: [facility] Marissa Roth on 06-24-2024 CO2 [Moles/Vol] 23.0 mmol/L 21.0-32.0 [facility] Chloride measurementOrdered By: [facility] Marissa Roth on 06-24-2024 Chloride [Moles/Vol] 107 mmol/L 98-107 [facility] Comprehensive Metabolic Prof ilon 06-24-2024 Albumin [Mass/Vol] 3.9 g/dL Normal 3.2-5.0 [facility] Comment on above: Performed By: #### L 100.0100, L501.9910, L502.0500, L501.9985, L500.4100, L500.4050, L501.9520 #### [facility] [address] [place], [address] Albumin/Globulin [Mass ratio] 1.1 {ratio} Normal 0.9-2.4 [facility] Comment on above: Performed By: #### L 100.0100, L501.9910, L502.0500, L501.9985, L500.4100, L500.4050, L501.9520 #### [facility] [address] [place], [address] ALK P 65 U/L Normal 45-117 [facility] Comment on above: Performed By: #### L 100.0100, L501.9910, L502.0500, L501.9985, L500.4100, L500.4050, L501.9520 #### [facility] [address] [place], [address] ALT [Catalytic activity/Vol] 30 U/L Normal 16-61 [facility] Comment on above: Performed By: #### L 100.0100, L501.9910, L502.0500, L501.9985, L500.4100, L500.4050, L501.9520 #### [facility] [address] [place], [address] AST [Catalytic activity/Vol] 21 U/L Normal 15-37 [facility] Comment on above: Performed By: #### L 100.0100, L501.9910, L502.0500, L501.9985, L500.4100, L500.4050, L501.9520 #### [facility] [address] [place], [address] Bilirubin [Mass/Vol] 0.50 mg/dL Normal 0.20-1.00 [facility] Comment on above: Result Comment: For patients on eltrombopag therapy, use of Dimension [place] TBIL is not recommended. Performed By: #### L 100.0100, L501.9910, L502.0500, L501.9985, L500.4100, L500.4050, L501.9520 #### [facility] [address] [place], [address] BUN/CRE 18.4 RATIO Normal 10-20 [facility] Comment on above: Performed By: #### L 100.0100, L501.9910, L502.0500, L501.9985, L500.4100, L500.4050, L501.9520 #### [facility] [address] [place], [address] CA,Total 9.0 mg/dL Normal 8.5-10.1 [facility] Comment on above: Performed By: #### L 100.0100, L501.9910, L502.0500, L501.9985, L500.4100, L500.4050, L501.9520 #### [facility] [address] [place], [address] Chloride [Moles/Vol] 107 mmol/L Normal 98-107 [facility] Comment on above: Performed By: #### L 100.0100, L501.9910, L502.0500, L501.9985, L500.4100, L500.4050, L501.9520 #### [facility] [address] [place], [address] CO2 [Moles/Vol] 23.0 mmol/L Normal 21.0-32.0 [facility] Comment on above: Performed By: #### L 100.0100, L501.9910, L502.0500, L501.9985, L500.4100, L500.4050, L501.9520 #### [facility] [address] [place], [address] Creatinine [Mass/Vol] 1.36 mg/dL High 0.70-1.30 [facility] Comment on above: Result Comment: The validity of the calculated GFR GFRAA in patients over 70 years has not been determined. Clinical correlation is essential. Performed By: #### L 100.0100, L501.9910, L502.0500, L501.9985, L500.4100, L500.4050, L501.9520 #### [facility] [address] [place], [address] EST GFR - AA 67 mL/min Normal >60 [facility] Comment on above: Result Comment: Afri can Gabonese GFR Calc Performed By: #### L 100.0100, L501.9910, L502.0500, L501.9985, L500.4100, L500.4050, L501.9520 #### [facility] [address] [place], [address] GAP 8 Normal 5-15 [facility] Comment on above: Performed By: #### L 100.0100, L501.9910, L502.0500, L501.9985, L500.4100, L500.4050, L501.9520 #### [facility] [address] [place], [address] GFR/1.73 sq M.predicted among non-blacks MDRD (S/P/Bld) [Vol rate/Area] 55 mL/min/{1.73_m2} Low >60 [facility] Comment on above: Result Comment: Non- GFR Calc Performed By: #### L 100.0100, L501.9910, L502.0500, L501.9985, L500.4100, L500.4050, L501.9520 #### [facility] [address] [place], [address] Globulin (S) [Mass/Vol] 3.7 g/dL Normal 2.2-4.2 [facility] Comment on above: Performed By: #### L 100.0100, L501.9910, L502.0500, L501.9985, L500.4100, L500.4050, L501.9520 #### [facility] [address] [place], [address] Glucose [Mass/Vol] 112 mg/dL High 74-106 [facility] Comment on above: Result Comment: Fast ing Glucose result from 100 to 125 mg/dL suggests IMPAIRED HOMEOSTASIS per A.D.A. criteria. Performed By: #### L 100.0100, L501.9910, L502.0500, L501.9985, L500.4100, L500.4050, L501.9520 #### [facility] [address] [place], [address] Potassium [Moles/Vol] 4.1 mmol/L Normal 3.5-5.1 [facility] Comment on above: Performed By: #### L 100.0100, L501.9910, L502.0500, L501.9985, L500.4100, L500.4050, L501.9520 #### [facility] [address] [place], [address] Sodium [Moles/Vol] 138 mmol/L Normal 136-145 [facility] Comment on above: Performed By: #### L 100.0100, L501.9910, L502.0500, L501.9985, L500.4100, L500.4050, L501.9520 #### [facility] [address] [place], [place], [id number] T PROT 7.6 g/dL Normal 6.4-8.2 [facility] Comment on above: Performed By: #### L 100.0100, L501.9910, L502.0500, L501.9985, L500.4100, L500.4050, L501.9520 #### [facility] [address] [place], [address] Urea nitrogen [Mass/Vol] 25 mg/dL High 7-18 [facility] Comment on above: Performed By: #### L 100.0100, L501.9910, L502.0500, L501.9985, L500.4100, L500.4050, L501.9520 #### [facility] [address] [place], [place], [id number] Eosinophil percentageOrdered By: [facility] Marissa Roth on 06-24-2024 Eosinophils/100 WBC (Bld) 1.6 % 0-5 [facility] Erythrocyte distribution wid th (RBC) [Ratio]Ordered By: [facility] Marissa Roth on 06-24-2024 Erythrocyte distribution width (RBC) [Entitic vol] 45.0 fL High 35.1-43.9 [facility] Erythrocyte distribution wid th ratioOrdered By: [facility] Marissa Roth on 06-24-2024 Erythrocyte distribution width (RBC) [Ratio] 13.2 % 11.6-14.6 [facility] Erythrocyte distribution wid th standard deviationOrdered By: [facility] Marissa Roth on 06-24-2024 Erythrocyte distribution width (RBC) [Ratio] 45.0 fl High 35.1-43.9 [facility] Estimated glomerular filtrat ion rate (GFR) AmericanOrdered By: [facility] Marissa Roth on 06-24-2024 Estimated GFR (MDRD) Amer 67 mL/min >60 [facility] Comment on above: GFR Calc Glomerular filtration rate ( GFR) estimationOrdered By: [facility] Marissa Gonzalez on 06-24-2024 Estimated GFR (MDRD) Non-Af Amer 55 mL/min Low >60 [facility] Comment on above: Non- GFR Calc GFR/1.73 sq M.predicted among non-blacks MDRD (S/P/Bld) [Vol rate/Area] 55 mL/min/{1.73_m2} Low >60 [facility] Comment on above: Non- GFR Calc Glucose measurementOrdered B y: [facility] Marissa Gonzalez on 06-24-2024 Glucose [Mass/Vol] 112 mg/dL High 74-106 [facility] Comment on above: Fasting Glucose resu lt from 100 to 125 mg/dL suggests IMPAIRED HOMEOSTASIS per A.D.A. criteria. Hematocrit Auto (Bld) [Volum e fraction]Ordered By: [facility] Marissashilpa Roth on 06-24-2024 Hematocrit (Bld) [Volume fraction] 50.8 % 40-54 [facility] Hemoglobin A1con 06-24-2024 HbA1c (Bld) [Mass fraction] 6.0 % High 3.8-5.6 [facility] Comment on above: Result Comment: Norm al < 5.7 % Prediabetic 5.7 - 6.4 % Diabetic >or= 6.5 % Please note range changes. Performed By: #### L 100.0100, L501.9910, L502.0500, L501.9985, L500.4100, L500.4050, L501.9520 #### [facility] [address] [facility] [place], [address] Hemoglobin A1c percentageOrd ered By: [facility] Marissashilpa Roth on 06-24-2024 HbA1c (Bld) [Mass fraction] 6.0 % High 3.8-5.6 [facility] Comment on above: Normal < 5.7 % Predi abetic 5.7 - 6.4 % Diabetic >or= 6.5 % Please note range changes. Hemoglobin measurementOrdere d By: [facility] Marissa Roth on 06-24-2024 Hemoglobin (Bld) [Mass/Vol] 16.5 g/dL 13.0-16.5 [facility] High density lipoprotein (HD L) measurementOrdered By: [facility] Marissa Roth on 06-24-2024 Cholesterol in HDL [Mass/Vol] 41 mg/dL >40 [facility] Comment on above: The drugs N-Acetylcy steine and Metamizole may falsely depress this assay. Reference Range HDL <40 mg/dL Low HDL Cholesterol HDL >or= 60 mg/dL High HDL Cholesterol Immature granulocytes/100 WB C Auto (Bld)Ordered By: [facility] Marissa Roth on 06-24-2024 Immature granulocytes/100 WBC (Bld) 0.300 % 0.0-0.9 [facility] Comment on above: IG% - Immature Granu locytes (promyelocytes, myelocytes and metamyelocytes) > 1% indicates that a LEFT SHIFT is Present. Laboratory - Chemistry and C hemistry - challengeOrdered By: [facility] Marissa Roth on 06-24-2024 AST [Catalytic activity/Vol] 21 U/L 15-37 [facility] Lipid Profileon 06-24-2024 Cholesterol [Mass/Vol] 168 mg/dL Normal 200 [facility] Comment on above: Result Comment: <200 mg/dL Desirable 200-240 mg/dL Borderline >240 mg/dL High Risk Performed By: #### L 100.0100, L501.9910, L502.0500, L501.9985, L500.4100, L500.4050, L501.9520 #### [facility] [address] [place], [address] Cholesterol in HDL [Mass/Vol] 41 mg/dL Normal [facility] Comment on above: Result Comment: The drugs N-Acetylcysteine and Metamizole may falsely depress this assay. Reference Range HDL <40 mg/dL Low HDL Cholesterol HDL >or= 60 mg/dL High HDL Cholesterol Performed By: #### L 100.0100, L501.9910, L502.0500, L501.9985, L500.4100, L500.4050, L501.9520 #### [facility] [address] [place], [address] Cholesterol in LDL [Mass/Vol] 106 mg/dL Normal 0-130 [facility] Comment on above: Performed By: #### L 100.0100, L501.9910, L502.0500, L501.9985, L500.4100, L500.4050, L501.9520 #### [facility] [address] [place], [address] Cholesterol in VLDL [Mass/Vol] 21 mg/dL Normal 5-40 [facility] Comment on above: Performed By: #### L 100.0100, L501.9910, L502.0500, L501.9985, L500.4100, L500.4050, L501.9520 #### [facility] [address] [facility] [place], [address] Triglyceride [Mass/Vol] 105 mg/dL Normal [facility] Comment on above: Result Comment: The drugs N-Acetylcysteine and Metamizole may falsely depress this assay. Serum Triglycerides Reference Interval Normal <150 mg/dL Borderline high 150 - 199 mg/dL High 200 - 499 mg/dL Very High > or = 500 mg/dL Performed By: #### L 100.0100, L501.9910, L502.0500, L501.9985, L500.4100, L500.4050, L501.9520 #### [facility] [address] [place], [address] Low density lipoprotein (LDL ) cholesterol measurementOrdered By: [facility] Marissa Roth on 06-24-2024 Cholesterol in LDL [Mass/Vol] 106 mg/dL 0-130 [facility] Lymphocytes Auto (Unsp spec) [#/Vol]Ordered By: [facility] Marissa Rtoh on 06-24-2024 Lymphocytes (Bld) [#/Vol] 1.86 10*3/uL 0.83-4.51 [facility] Lymphocytes/100 WBC Auto (Un sp spec)Ordered By: [facility] Marissa Roth on 06-24-2024 Lymphocytes/100 WBC (Bld) 26.9 % 19-41 [facility] MCV (mean corpuscular volume ) determinationOrdered By: [facility] Marissa Roth on 06-24-2024 MCV (RBC) [Entitic vol] 93.6 fL 80-94 [facility] Mean corpuscular hemoglobin (MCH) determinationOrdered By: [facility] Marissa Roth on 06-24-2024 MCH (RBC) [Entitic mass] 30.4 pg 27.0-32.0 [facility] Mean corpuscular hemoglobin concentration (MCHC) determinationOrdered By: [facility] Marissa Roth on 06-24-2024 MCHC (RBC) [Mass/Vol] 32.5 g/dL 32-36 [facility] Mean platelet volume determi nationOrdered By: [facility] Marissa Roth on 06-24-2024 Platelet mean volume (Bld) [Entitic vol] 9.8 fL 6.2-12.0 [facility] Microalbumin,Random Urineon 06-24-2024 MICROALBUMIN,UR 14.6 mg/L Normal NO RANGE EST. [facility] Comment on above: Performed By: #### L 100.0100, L501.9910, L502.0500, L501.9985, L500.4100, L500.4050, L501.9520 #### [facility] [address] [place], [address] Monocyte percentageOrdered B y: [facility] Marissa Roth on 06-24-2024 Monocytes/100 WBC (Bld) 9.7 % 0-10 [facility] Neutrophil percentageOrdered By: [facility] Marissa Roth on 06-24-2024 Neutrophils/100 WBC (Bld) 60.5 % 47-70 [facility] Nucleated red blood cell per centageOrdered By: [facility] Marissa Roth on 06-24-2024 Nucleated RBC/100 WBC (Bld) [Ratio] 0 % 0-5 [facility] PSA,Total - Annual Screenon 06-24-2024 PSA,TOT SCREEN 2.24 ng/mL Normal 0.00-4.00 [facility] Comment on above: Result Comment: This test was performed using the TPSA assay method for the [employer] chemistry system. Values obtained with different assay methods cannot be used interchangably. When changing PSA assays in the course of monitoring a patient, additional sequential testing should be carried out to confirm baseline values. Performed By: #### L 100.0100, L501.9910, L502.0500, L501.9985, L500.4100, L500.4050, L501.9520 #### [facility] [address] [place], [address] Platelet countOrdered By: [facility] Marissa Roth on 06-24-2024 Platelets (Bld) [#/Vol] 311 10*3/uL 150-450 [facility] Potassium measurementOrdered By: [facility] Marissa Roth on 06-24-2024 Potassium [Moles/Vol] 4.1 mmol/L 3.5-5.1 [facility] RBC Auto (Bld) [#/Vol]Ordere d By: [facility] Marissa Roth on 06-24-2024 RBC (Bld) [#/Vol] 5.43 10*6/uL 4.6-6.2 [facility] Random urine microalbumin me asurementOrdered By: [facility] Marissa Roth on 06-24-2024 Urine Random Microalbumin 14.6 mg/L NO RANGE EST. [facility] Screening prostate specific antigen (PSA) measurementOrdered By: [facility] Marissa Roth on 06-24-2024 Prostate Specific Antigen Screen 2.24 ng/mL 0.00-4.00 [facility] Comment on above: This test was perfor med using the TPSA assay method for [employer] chemistry system. Values obtained with differentassay methods cannot be used interchangably.When changing PSA assays in the course of monitoring apatient, additional sequential testing should be carriedout to confirm baseline values. Serum anion gap measurementO rdered By: Floresita Roth on 06-24-2024 Anion gap [Moles/Vol] 8 mmol/L 5-15 [facility] Serum globulin measurementOr dered By: [facility] Marissa Roth on 06-24-2024 Globulin (S) [Mass/Vol] 3.7 g/dL 2.2-4.2 [facility] Serum or plasma alanine rios otransferase (ALT) measurementOrdered By: [facility] Marissashilpa Roth on 06-24-2024 ALT [Catalytic activity/Vol] 30 U/L 16-61 [facility] Serum or plasma albumin pavithra urement (mass/volume)Ordered By: [facility] Marissashilpa Roth on 06-24-2024 Albumin [Mass/Vol] 3.9 g/dL 3.2-5.0 [facility] Serum or plasma alkaline bharat sphatase measurementOrdered By: [facility] 06-24-2024 ALP [Catalytic activity/Vol] 65 U/L 45-117 [facility] Serum or plasma calcium pavithra urement (mass/volume)Ordered By: [facility] on 06-24-2024 Calcium [Mass/Vol] 9.0 mg/dL 8.5-10.1 [facility] Serum or plasma cholesterol measurement (mass/volume)Ordered By: [facility] on 06-24-2024 Cholesterol [Mass/Vol] 168 mg/dL <200 [facility] Comment on above: <200 mg/dL Desirable 200-240 mg/dL Borderline >240 mg/dL High Risk Serum or plasma creatinine m easurement (mass/volume)Ordered By: [facility] Marissa Gonzalez on 06-24-2024 Creatinine [Mass/Vol] 1.36 mg/dL High 0.70-1.30 [facility] Comment on above: The validity of the calculated GFR & GFRAA in patients over 70 years has not been determined. Clinical correlation is essential. Serum or plasma thyroid stim ulating hormone (TSH) measurement (units/volume)Ordered By: [facility] 06-24-2024 TSH Qn 1.420 uIU/mL 0.358-3.740 [facility] Serum or plasma urea nitroge n measurement (mass/volume)Ordered By: [facility] Marissashilpa Roth 06-24-2024 Urea nitrogen [Mass/Vol] 25 mg/dL High 7-18 [facility] Sodium levelOrdered By: [facility] 06-24-2024 Sodium [Moles/Vol] 138 mmol/L 136-145 [facility] TSH QnOrdered By: [facility] Marko Roth on 06-24-2024 Thyroid Stimulating Hormone (TSH) 1.420 uIU/mL 0.358-3.740 [facility] Thyroid Stim Hormone (TSH)on 06-24-2024 TSH 1.420 uIU/mL Normal 0.358-3.740 [facility] Comment on above: Performed By: #### L 100.0100, L501.9910, L502.0500, L501.9985, L500.4100, L500.4050, L501.9520 #### [facility] [address] [place], [place], [id number] Total proteinOrdered By: [facility] Marissa Roth on 06-24-2024 Protein [Mass/Vol] 7.6 g/dL 6.4-8.2 [facility] Triglycerides measurementOrd ered By: [facility] Marissa Roth on 06-24-2024 Triglyceride [Mass/Vol] 105 mg/dL <199 [facility] Comment on above: The drugs N-Acetylcy steine and Metamizole may falsely depress this assay.Serum Triglycerides Reference Interval Normal <150 mg/dL Borderline high 150 - 199 mg/dL High 200 - 499 mg/dL Very High > or = 500 mg/dL Very low density lipoprotein (VLDL) cholesterol measurementOrdered By: [facility] Marissa Roth on 06-24-2024 Very low density lipoprotein (VLDL) cholesterol measurement 21 mg/dL 5-40 [facility] VLDL Cholesterol 21 mg/dL 5-40 [facility] White blood cell (WBC) count Ordered By: [facility] Marissa Roth on 06-24-2024 WBC (Bld) [#/Vol] 6.9 10*3/uL 4.4-11.0 [facility] CNOVon 02-10-2024 CNOV Office Visit (PODIWS) LAN GUADALUPE ([id number]) 1955 M Date Time Provider Department 02/10/24 8:00 AM AMARILYS SMYTH During your visit today, we recorded the following information about you: Liza Johnson RN 02/10/2024 8:15 AM Signed Patient presents with: Left Foot - Established Patient, Follow Up, Diabetic Foot Check Right Foot - Established Patient, Follow Up, Diabetic Foot Check Patient presents for 1 year follow up diabetic foot check. SHAN 02/09/24 Amarilys Smyth 02/10/2024 8:15 AM Signed Initial Office Visit Subjective: This 68 year old male presents to clinic for diabetic foot check. Patient has no complaints. Patient admits to being diabetic for 4-5 years now. Patient +B/T/N in feet at this time. Patient -pain in legs when walking. No other pedal complaints at this time. No change in medications or medical history since last visit. PAIN EVALUATION No data found in the last 1 encounters. Hemoglobin A1C (%) Date Value 04/29/2017 6.1 01/09/2017 5.9 09/17/2016 6.1 06/26/2016 6.2 05/16/2016 6.3 PCP: Rocio Iyer (Inactive) PAST MEDICAL HISTORY Diagnosis Date Elevated prostate [...] NOS 05/27/2006 Current Outpatient Medications Medication Sig gemfibrozil (LOPID) 600 mg tablet Take 600 mg by mouth two times a day before meals. metFORMIN (GLUCOPHAGE) 500 mg tablet Take 500 [...] daily. (Patient not taking: Reported on 02/08/2022) [place]-3 Fatty Acids-Vitamin E (FISH OIL) 1,000 mg cap Take 1 capsule by mouth. (Patient not taking: Reported on 02/08/2021) Geriatric Multivitamins-Min tab Take by mouth. (Patient not taking: Reported on 02/08/2022) No current facility-administere d medications for this visit. ALLERGIES Allergen Reactions [...] History Tobacco Use Smoking status: Every Day Current packs/day: 1.00 Average packs/day: 1 pack/day for 47.0 years (47.0 ttl pk-yrs) Types: Cigarettes Smokeless tobacco: Never Vaping Use Vaping status: Never Used Substance Use Topics Alcohol use: No Drug [...] pain. SKIN: Negative for lesions, rash, and i (more content not included)... Normal [facility] CBC W/Diff, Automatedon 12-11-2023 Absolute Lymph 2.15 X10 3/uL Normal 0.83-4.51 [facility] Comment on above: Performed By: #### L 100.0100, L500.4100, L501.9985, L502.0500, L500.4050 #### [facility] [address] [place], [address] Absolute Neut 3.8 X10 3/uL Normal 2.0-7.7 [facility] Comment on above: Performed By: #### L 100.0100, L500.4100, L501.9985, L502.0500, L500.4050 #### [facility] [address] [place], [address] Basophils/100 WBC (Bld) 1.0 % Normal 0-1 [facility] Comment on above: Performed By: #### L 100.0100, L500.4100, L501.9985, L502.0500, L500.4050 #### [facility] [address] [place], [address] Eosinophils/100 WBC (Bld) 2.1 % Normal 0-5 [facility] Comment on above: Performed By: #### L 100.0100, L500.4100, L501.9985, L502.0500, L500.4050 #### [facility] [address] [place], [address] Erythrocyte distribution width (RBC) [Ratio] 13.0 % Normal 11.6-14.6 [facility] Comment on above: Performed By: #### L 100.0100, L500.4100, L501.9985, L502.0500, L500.4050 #### [facility] [address] [place], [address] Hematocrit (Bld) [Volume fraction] 48.8 % Normal 40-54 [facility] Comment on above: Performed By: #### L 100.0100, L500.4100, L501.9985, L502.0500, L500.4050 #### [facility] [address] [place], [address] Hemoglobin (Bld) [Mass/Vol] 16.3 g/dL Normal 13.0-16.5 [facility] Comment on above: Performed By: #### L 100.0100, L500.4100, L501.9985, L502.0500, L500.4050 #### [facility] [address] [place], [address] IG% 0.300 Normal 0.0-0.9 [facility] Comment on above: Result Comment: IG% - Immature Granulocytes (promyelocytes, myelocytes and metamyelocytes) > 1% indicates that a LEFT SHIFT is Present. Performed By: #### L 100.0100, L500.4100, L501.9985, L502.0500, L500.4050 #### [facility] [address] [place], [address] Lymphocytes/100 WBC (Bld) 31.6 % Normal 19-41 [facility] Comment on above: Performed By: #### L 100.0100, L500.4100, L501.9985, L502.0500, L500.4050 #### [facility] [address] [place], [address] MCH (RBC) [Entitic mass] 31.5 pg Normal 27.0-32.0 [facility] Comment on above: Performed By: #### L 100.0100, L500.4100, L501.9985, L502.0500, L500.4050 #### [facility] [address] [place], [address] MCHC (RBC) [Mass/Vol] 33.4 g/dL Normal 32-36 [facility] Comment on above: Performed By: #### L 100.0100, L500.4100, L501.9985, L502.0500, L500.4050 #### [facility] [address] [place], [address] MCV (RBC) [Entitic vol] 94.2 fL High 80-94 [facility] Comment on above: Performed By: #### L 100.0100, L500.4100, L501.9985, L502.0500, L500.4050 #### [facility] [address] [place], [address] Monocytes/100 WBC (Bld) 9.8 % Normal 0-10 [facility] Comment on above: Performed By: #### L 100.0100, L500.4100, L501.9985, L502.0500, L500.4050 #### [facility] [address] [place], [address] Neutrophils/100 WBC (Bld) 55.2 % Normal 47-70 [facility] Comment on above: Performed By: #### L 100.0100, L500.4100, L501.9985, L502.0500, L500.4050 #### [facility] [address] [place], [address] Nucleated RBC (Bld) [#/Vol] 0 10*3/uL Normal 0-5 [facility] Comment on above: Performed By: #### L 100.0100, L500.4100, L501.9985, L502.0500, L500.4050 #### [facility] [address] [place], [address] Platelet mean volume (Bld) [Entitic vol] 9.6 fL Normal 6.2-12.0 [facility] Comment on above: Performed By: #### L 100.0100, L500.4100, L501.9985, L502.0500, L500.4050 #### [facility] [address] [place], [address] Platelets (Bld) [#/Vol] 278 10*3/uL Normal 150-450 [facility] Comment on above: Performed By: #### L 100.0100, L500.4100, L501.9985, L502.0500, L500.4050 #### [facility] [address] [place], [address] RBC (Bld) [#/Vol] 5.18 10*6/uL Normal 4.6-6.2 [facility] Comment on above: Performed By: #### L 100.0100, L500.4100, L501.9985, L502.0500, L500.4050 #### [facility] [address] [place], [address] RDW SD 45.2 fl High 35.1-43.9 [facility] Comment on above: Performed By: #### L 100.0100, L500.4100, L501.9985, L502.0500, L500.4050 #### [facility] [address] [place], [address] WBC (Bld) [#/Vol] 6.8 10*3/uL Normal 4.4-11.0 [facility] Comment on above: Performed By: #### L 100.0100, L500.4100, L501.9985, L502.0500, L500.4050 #### [facility] [address] [place], [address] Comprehensive Metabolic Prof ilon 12-23-2023 Albumin [Mass/Vol] 3.8 g/dL Normal 3.2-5.0 [facility] Comment on above: Performed By: #### L 100.0100, L501.9910, L502.0500, L501.9985, L500.4100, L500.4050, L501.9520 #### [facility] [address] [place], [address] Albumin/Globulin [Mass ratio] 1.0 {ratio} Normal 0.9-2.4 [facility] Comment on above: Performed By: #### L 100.0100, L501.9910, L502.0500, L501.9985, L500.4100, L500.4050, L501.9520 #### [facility] [address] [place], [address] ALK P 68 U/L Normal 45-117 [facility] Comment on above: Performed By: #### L 100.0100, L501.9910, L502.0500, L501.9985, L500.4100, L500.4050, L501.9520 #### [facility] [address] [place], [address] ALT [Catalytic activity/Vol] 29 U/L Normal 16-61 [facility] Comment on above: Performed By: #### L 100.0100, L501.9910, L502.0500, L501.9985, L500.4100, L500.4050, L501.9520 #### [facility] [address] [place], [address] AST [Catalytic activity/Vol] 27 U/L Normal 15-37 [facility] Comment on above: Performed By: #### L 100.0100, L501.9910, L502.0500, L501.9985, L500.4100, L500.4050, L501.9520 #### [facility] [address] [place], [address] Bilirubin [Mass/Vol] 0.70 mg/dL Normal 0.20-1.00 [facility] Comment on above: Result Comment: For patients on eltrombopag therapy, use of Dimension [place] TBIL is not recommended. Performed By: #### L 100.0100, L501.9910, L502.0500, L501.9985, L500.4100, L500.4050, L501.9520 #### [facility] [address] [place], [address] BUN/CRE 17.7 RATIO Normal 10-20 [facility] Comment on above: Performed By: #### L 100.0100, L501.9910, L502.0500, L501.9985, L500.4100, L500.4050, L501.9520 #### [facility] [address] [place], [address] CA,Total 9.3 mg/dL Normal 8.5-10.1 [facility] Comment on above: Performed By: #### L 100.0100, L501.9910, L502.0500, L501.9985, L500.4100, L500.4050, L501.9520 #### [facility] [address] [place], [address] Chloride [Moles/Vol] 108 mmol/L High 98-107 [facility] Comment on above: Performed By: #### L 100.0100, L501.9910, L502.0500, L501.9985, L500.4100, L500.4050, L501.9520 #### [facility] [address] [place], [address] CO2 [Moles/Vol] 22.0 mmol/L Normal 21.0-32.0 [facility] Comment on above: Performed By: #### L 100.0100, L501.9910, L502.0500, L501.9985, L500.4100, L500.4050, L501.9520 #### [facility] [address] [place], [address] Creatinine [Mass/Vol] 1.24 mg/dL Normal 0.70-1.30 [facility] Comment on above: Result Comment: The validity of the calculated GFR GFRAA in patients over 70 years has not been determined. Clinical correlation is essential. Performed By: #### L 100.0100, L501.9910, L502.0500, L501.9985, L500.4100, L500.4050, L501.9520 #### [facility] [address] [place], [address] EST GFR - AA 74 mL/min Normal >60 [facility] Comment on above: Result Comment: Afri can [place] GFR Calc Performed By: #### L 100.0100, L501.9910, L502.0500, L501.9985, L500.4100, L500.4050, L501.9520 #### [facility] [address] [place], [address] GAP 7 Normal 5-15 [facility] Comment on above: Performed By: #### L 100.0100, L501.9910, L502.0500, L501.9985, L500.4100, L500.4050, L501.9520 #### [facility] [address] [place], [address] GFR/1.73 sq M.predicted among non-blacks MDRD (S/P/Bld) [Vol rate/Area] 62 mL/min/{1.73_m2} Normal >60 [facility] Comment on above: Result Comment: Non- GFR Calc Performed By: #### L 100.0100, L501.9910, L502.0500, L501.9985, L500.4100, L500.4050, L501.9520 #### [facility] [address] [place], [address] Globulin (S) [Mass/Vol] 3.7 g/dL Normal 2.2-4.2 [facility] Comment on above: Performed By: #### L 100.0100, L501.9910, L502.0500, L501.9985, L500.4100, L500.4050, L501.9520 #### [facility] [address] [place], [address] Glucose [Mass/Vol] 112 mg/dL High 74-106 [facility] Comment on above: Result Comment: Fast ing Glucose result from 100 to 125 mg/dL suggests IMPAIRED HOMEOSTASIS per A.D.A. criteria. Performed By: #### L 100.0100, L501.9910, L502.0500, L501.9985, L500.4100, L500.4050, L501.9520 #### [facility] [address] [place], [address] Potassium [Moles/Vol] 4.1 mmol/L Normal 3.5-5.1 [facility] Comment on above: Performed By: #### L 100.0100, L501.9910, L502.0500, L501.9985, L500.4100, L500.4050, L501.9520 #### [facility] [address] [place], [address] Sodium [Moles/Vol] 137 mmol/L Normal 136-145 [facility] Comment on above: Performed By: #### L 100.0100, L501.9910, L502.0500, L501.9985, L500.4100, L500.4050, L501.9520 #### [facility] [address] [place], [address] T PROT 7.5 g/dL Normal 6.4-8.2 [facility] Comment on above: Performed By: #### L 100.0100, L501.9910, L502.0500, L501.9985, L500.4100, L500.4050, L501.9520 #### [facility] [address] [place], [address] Urea nitrogen [Mass/Vol] 22 mg/dL High 7-18 [facility] Comment on above: Performed By: #### L 100.0100, L501.9910, L502.0500, L501.9985, L500.4100, L500.4050, L501.9520 #### [facility] [address] [place], [address] Hemoglobin A1con 12-23-2023 HbA1c (Bld) [Mass fraction] 5.9 % High 3.8-5.6 [facility] Comment on above: Result Comment: Norm al < 5.7 % Prediabetic 5.7 - 6.4 % Diabetic >or= 6.5 % Please note range changes. Performed By: #### L 100.0100, L500.4100, L501.9985, L502.0500, L500.4050 #### [facility] [address] [place], [address] Lipid Profileon 12-23-2023 Cholesterol [Mass/Vol] 149 mg/dL Normal 200 [facility] Comment on above: Result Comment: <200 mg/dL Desirable 200-240 mg/dL Borderline >240 mg/dL High Risk Performed By: #### L 100.0100, L501.9910, L502.0500, L501.9985, L500.4100, L500.4050, L501.9520 #### [facility] [address] [place], [address] Cholesterol in HDL [Mass/Vol] 45 mg/dL Normal [facility] Comment on above: Result Comment: The drugs N-Acetylcysteine and Metamizole may falsely depress this assay. Reference Range HDL <40 mg/dL Low HDL Cholesterol HDL >or= 60 mg/dL High HDL Cholesterol Performed By: #### L 100.0100, L501.9910, L502.0500, L501.9985, L500.4100, L500.4050, L501.9520 #### [facility] [address] [place], [address] Cholesterol in LDL [Mass/Vol] 85 mg/dL Normal 0-130 [facility] Comment on above: Performed By: #### L 100.0100, L501.9910, L502.0500, L501.9985, L500.4100, L500.4050, L501.9520 #### [facility] [address] [place], [address] Cholesterol in VLDL [Mass/Vol] 19 mg/dL Normal 5-40 [facility] Comment on above: Performed By: #### L 100.0100, L501.9910, L502.0500, L501.9985, L500.4100, L500.4050, L501.9520 #### [facility] [address] [place], [address] Triglyceride [Mass/Vol] 96 mg/dL Normal [facility] Comment on above: Result Comment: The drugs N-Acetylcysteine and Metamizole may falsely depress this assay. Serum Triglycerides Reference Interval Normal <150 mg/dL Borderline high 150 - 199 mg/dL High 200 - 499 mg/dL Very High > or = 500 mg/dL Performed By: #### L 100.0100, L501.9910, L502.0500, L501.9985, L500.4100, L500.4050, L501.9520 #### [facility] [address] [place], [address] Microalbumin,Random Urineon 12-23-2023 MICROALBUMIN,UR 7.6 mg/L Normal NO RANGE EST. [facility] Comment on above: Performed By: #### L 100.0100, L501.9910, L502.0500, L501.9985, L500.4100, L500.4050, L501.9520 #### [facility] [address] [place], [address] Basophil percentageOrdered B y: ROCIO PALOMARES on 06-26-2023 Bilirubin [Mass/Vol] 0.60 mg/dL 0.20-1.00 [facility] Comment on above: For patients on eltr ombopag therapy, use of Dimension [place] TBIL is not recommended. Chloride [Moles/Vol] 110 mmol/L 98-107 [facility] Cholesterol [Mass/Vol] 154 mg/dL <200 [facility] Comment on above: <200 mg/dL Desirable 200-240 mg/dL Borderline >240 mg/dL High Risk Glucose [Mass/Vol] 100 mg/dL 74-106 [facility] Comment on above: Fasting Glucose resu lt from 100 to 125 mg/dL suggests IMPAIRED HOMEOSTASIS per A.D.A. criteria. Hemoglobin (Bld) [Mass/Vol] 16.5 g/dL 13.0-16.5 [facility] Potassium [Moles/Vol] 4.3 mmol/L 3.5-5.1 [facility] Protein [Mass/Vol] 7.5 g/dL 6.4-8.2 [facility] Sodium [Moles/Vol] 141 mmol/L 136-145 [facility] Triglyceride [Mass/Vol] 55 mg/dL <199 [facility] Comment on above: The drugs N-Acetylcy steine and Metamizole may falsely depress this assay.Serum Triglycerides Reference Interval Normal <150 mg/dL Borderline high 150 - 199 mg/dL High 200 - 499 mg/dL Very High > or = 500 mg/dL WBC (Bld) [#/Vol] 10.2 10*3/uL 4.4-11.0 [facility] Determination of erythrocyte mean corpuscular volume (MCV)Ordered By: [facility] on 06-26-2023 MCV (RBC) [Entitic vol] 94.4 fL 80-94 [facility] Erythrocyte distribution wid th ratioOrdered By: [facility] on 06-26-2023 Erythrocyte distribution width (RBC) [Ratio] 13.1 % 11.6-14.6 [facility] Erythrocyte distribution wid th standard deviationOrdered By: [facility] on 06-26-2023 Erythrocyte distribution width (RBC) [Entitic vol] 45.3 fL 35.1-43.9 [facility] Hematocrit Auto (Bld) [Volum e fraction]Ordered By: [facility] on 06-26-2023 Hematocrit (Bld) [Volume fraction] 50.5 % 40-54 [facility] - Chemistry and C hemistry - challengeOrdered By: [facility] on 06-26-2023 Albumin/Globulin [Mass ratio] 1.2 {ratio} 0.9-2.4 [facility] ALP [Catalytic activity/Vol] 67 U/L 45-117 [facility] ALT [Catalytic activity/Vol] 35 U/L 16-61 [facility] Cholesterol in HDL [Mass/Vol] 41 mg/dL >40 [facility] Comment on above: The drugs N-Acetylcy steine and Metamizole may falsely depress this assay. Reference Range HDL <40 mg/dL Low HDL Cholesterol HDL >or= 60 mg/dL High HDL Cholesterol Cholesterol in LDL [Mass/Vol] 102 mg/dL 0-130 [facility] CO2 [Moles/Vol] 24.0 mmol/L 21.0-32.0 [facility] Globulin (S) [Mass/Vol] 3.4 g/dL 2.2-4.2 [facility] Urea nitrogen/Creatinine [Mass ratio] 16.5 mg/mg 10-20 [facility] - Hematology and Cell countsOrdered By: [facility] on 06-26-2023 MCH (RBC) [Entitic mass] 30.8 pg 27.0-32.0 [facility] MCHC (RBC) [Mass/Vol] 32.7 g/dL 32-36 [facility] Platelet mean volume (Bld) [Entitic vol] 9.9 fL 6.2-12.0 [facility] Platelets (Bld) [#/Vol] 342 10*3/uL 150-450 [facility] No Panel InformationOrdered By: [facility] on 06-26-2023 Estimated GFR (MDRD) Amer 69 mL/min >60 [facility] Comment on above: GFR Calc Estimated GFR (MDRD) Non-Af Amer 57 mL/min >60 [facility] Comment on above: Non- GFR Calc Prostate Specific Antigen Screen 1.61 ng/mL 0.00-4.00 [facility] Comment on above: This test was perfor med using the TPSA assay method for the[employer]Snaps chemistry system. Values obtained with differentassay methods cannot be used interchangably.When changing PSA assays in the course of monitoring apatient, additional sequential testing should be carriedout to confirm baseline values. Urine Microalbumin/Creatinine Ratio 16.2 mg/g CRE <30 [facility] VLDL Cholesterol 11 mg/dL 5-40 [facility] RBC Auto (Bld) [#/Vol]Ordere d By: [facility] on 06-26-2023 RBC (Bld) [#/Vol] 5.35 10*6/uL 4.6-6.2 [facility] Serum or plasma calcium pavithra urement (mass/volume)Ordered By: [facility] on 06-26-2023 Calcium [Mass/Vol] 9.5 mg/dL 8.5-10.1 [facility] Serum or plasma creatinine m easurement (mass/volume)Ordered By: [facility] on 06-26-2023 Creatinine [Mass/Vol] 1.33 mg/dL 0.70-1.30 [facility] Comment on above: The validity of the calculated GFR & GFRAA in patients over 70 years has not been determined. Clinical correlation is essential. Serum or plasma urea nitroge n measurement (mass/volume)Ordered By: [facility] on 06-26-2023 Urea nitrogen [Mass/Vol] 22 mg/dL 7-18 [facility] Thin prep Papanicolaou smear with manual screeningOrdered By: ROCIO PALOMARES on 06-26-2023 Thin prep Papanicolaou smear with manual screening 4.1 g/dL 3.2-5.0 [facility] Thin prep Papanicolaou smear with manual screening 31 U/L 15-37 [facility] Thin prep Papanicolaou smear with manual screening 7 5-15 [facility] Thin prep Papanicolaou smear with manual screening 22.2 mg/L NO RANGE EST. [facility] Urine creatinine measurement (mass/volume)Ordered By: ROCIO PALOMARES on 06-26-2023 Creatinine (U) [Mass/Vol] 137.00 mg/dL NO RANGE EST. [facility] Whole blood hemoglobin A1c/t otal hemoglobin ratio (mass fraction)Ordered By: ROCIO DALTON on 06-26-2023 HbA1c (Bld) [Mass fraction] 6.1 % 3.8-5.6 [facility] Comment on above: Normal < 5.7 % Predi abetic 5.7 - 6.4 % Diabetic >or= 6.5 % Please note range changes. Basophil percentageOrdered B y: Marissa Roth on 12-20-2022 Chloride [Moles/Vol] 108 mmol/L 98-107 [facility] Glucose [Mass/Vol] 122 mg/dL 74-106 [facility] Comment on above: Fasting Glucose resu lt from 100 to 125 mg/dL suggests IMPAIRED HOMEOSTASIS per A.D.A. criteria. Potassium [Moles/Vol] 4.1 mmol/L 3.5-5.1 [facility] Sodium [Moles/Vol] 140 mmol/L 136-145 [facility] Laboratory - Chemistry and C hemistry - challengeOrdered By: Marissa Roth on 12-20-2022 CO2 [Moles/Vol] 28.0 mmol/L 21.0-32.0 [facility] Urea nitrogen/Creatinine [Mass ratio] 14.0 mg/mg 10- [facility] No Panel InformationOrdered By: Marissa Roth on 12-20-2022 Estimated GFR (MDRD) Amer 67 mL/min >60 [facility] Comment on above: GFR Calc Estimated GFR (MDRD) Non-Af Amer 55 mL/min >60 [facility] Comment on above: Non- GFR Calc Serum or plasma calcium pavithra urement (mass/volume)Ordered By: Marissa Roth on 12-20-2022 Calcium [Mass/Vol] 9.2 mg/dL 8.5-10.1 [facility] Serum or plasma creatinine m easurement (mass/volume)Ordered By: Marissa Roth on 12-20-2022 Creatinine [Mass/Vol] 1.36 mg/dL 0.70-1.30 [facility] Comment on above: The validity of the calculated GFR & GFRAA in patients over 70 years has not been determined. Clinical correlation is essential. Serum or plasma urea nitroge n measurement (mass/volume)Ordered By: Marissa Roth on 12-20-2022 Urea nitrogen [Mass/Vol] 19 mg/dL 7-18 [facility] Thin prep Papanicolaou smear with manual screeningOrdered By: Marissa Roth on 12-20-2022 Thin prep Papanicolaou smear with manual screening 4 5-15 [facility] Thin prep Papanicolaou smear with manual screening 11.3 mg/L NO RANGE EST. [facility] Whole blood hemoglobin A1c/t otal hemoglobin ratio (mass fraction)Ordered By: Marissa Roth on 12-20-2022 HbA1c (Bld) [Mass fraction] 5.8 % 3.8-5.6 [facility] Comment on above: Normal < 5.7 % Predi abetic 5.7 - 6.4 % Diabetic >or= 6.5 % Please note range changes. Glucose Glucometer (BldC) [M ass/Vol]on 11-16-2021 Glucose [Mass/Vol] 127 mg/dL 74-106 [facility] Work Phone: Comment on above: MANAGEMENT OF PATIEN T CARE PER NURSING PROTOCOL Absolute lymphocyte counton 07-12-2021 Lymphocytes Auto (Unsp spec) [#/Vol] 2.41 10*3/uL 0.83-4.51 [facility] Work Phone: Basophil percentageon 2021 Basophils/100 WBC (Bld) 0.8 % 0-1 [facility] Work Phone: Bilirubin [Mass/Vol] 0.50 mg/dL 0.20-1.00 [facility] Work Phone: Comment on above: For patients on eltr ombopag therapy, use of Dimension [place] TBIL is not recommended. Chloride [Moles/Vol] 105 mmol/L 98-107 [facility] Work Phone: Cholesterol [Mass/Vol] 179 mg/dL <200 [facility] Work Phone: Comment on above: <200 mg/dL Desirable 200-240 mg/dL Borderline >240 mg/dL High Risk Eosinophils/100 WBC (Bld) 2.2 % 0-5 [facility] Work Phone: Glucose [Mass/Vol] 107 mg/dL 74-106 [facility] Work Phone: Comment on above: Fasting Glucose resu lt from 100 to 125 mg/dL suggests IMPAIRED HOMEOSTASIS per A.D.A. criteria. Neutrophils (Bld) [#/Vol] 4.8 10*3/uL 2.0-7.7 [facility] Work Phone: Neutrophils/100 WBC (Bld) 57.6 % 47-70 [facility] Work Phone: Potassium [Moles/Vol] 4.0 mmol/L 3.5-5.1 [facility] Work Phone: Protein [Mass/Vol] 7.6 g/dL 6.4-8.2 [facility] Work Phone: Sodium [Moles/Vol] 137 mmol/L 136-145 [facility] Work Phone: Triglyceride [Mass/Vol] 49 mg/dL [facility] Work Phone: Comment on above: The drugs N-Acetylcy steine and Metamizole may falsely depress this assay.Serum Triglycerides Reference Interval Normal <150 mg/dL Borderline high 150 - 199 mg/dL High 200 - 499 mg/dL Very High > or = 500 mg/dL WBC (Bld) [#/Vol] 8.4 10*3/uL 4.4-11.0 [facility] Work Phone: Blood erythrocytes count (nu mber/volume)on 07-12-2021 RBC (Bld) [#/Vol] 5.25 10*6/uL 4.6-6.2 [facility]: Blood hemoglobin measurement (mass/volume)on 07-12-2021 Hemoglobin (Bld) [Mass/Vol] 16.7 g/dL 13.0-16.5 [facility] Work Phone: Blood lymphocytes/100 leukoc yteson 07-12-2021 Lymphocytes/100 WBC (Bld) 28.8 % 19-41 [facility] Work Phone: Blood monocytes/100 leukocyt eson 07-12-2021 Monocytes/100 WBC (Bld) 10.2 % 0-10 [facility] Work Phone: Blood platelet mean volumeon 07-12-2021 Platelet mean volume (Bld) [Entitic vol] 9.4 fL 6.2-12.0 [facility] Work Phone: Determination of erythrocyte mean corpuscular volume (MCV)on 07-12-2021 MCV (RBC) [Entitic vol] 92.8 fL 80-94 [facility] Work Phone: Hematocrit Auto (Bld) [Volum e fraction]on 07-12-2021 Hematocrit (Bld) [Volume fraction] 48.7 % 40-54 [facility] Work Phone: Laboratory - Chemistry and C hemistry - challengeon 07-12-2021 ALP [Catalytic activity/Vol] 72 U/L 45-117 [facility] Work Phone: ALT [Catalytic activity/Vol] 38 U/L 16-61 [facility] Work Phone: CO2 [Moles/Vol] 27.0 mmol/L 21.0-32.0 [facility] Work Phone: Globulin (S) [Mass/Vol] 3.6 g/dL 2.2-4.2 [facility] Work Phone: Urea nitrogen/Creatinine [Mass ratio] 18.1 mg/mg 10-20 [facility] Work Phone: Laboratory - Hematology and Cell countson 07-12-2021 Erythrocyte distribution width (RBC) [Entitic vol] 44.9 fL 35.1-43.9 [facility] Work Phone: Erythrocyte distribution width (RBC) [Ratio] 13.2 % 11.6-14.6 [facility] Work Phone: Immature granulocytes/100 WBC (Bld) 0.400 % 0.0-0.9 [facility] Work Phone: Comment on above: IG% - Immature Granu locytes (promyelocytes, myelocytes and metamyelocytes) > 1% indicates that a LEFT SHIFT is Present. MCH (RBC) [Entitic mass] 31.8 pg 27.0-32.0 [facility] Work Phone: Nucleated RBC/100 WBC (Bld) [Ratio] 0 % 0-5 [facility] Work Phone: MCHC Auto (RBC) [Mass/Vol]on 07-12-2021 MCHC (RBC) [Mass/Vol] 34.3 g/dL 32-36 [facility] Work Phone: No Panel Informationon 07-12 Estimated GFR (MDRD) Amer 81 mL/min >60 [facility] Work Phone: Comment on above: GFR Calc Estimated GFR (MDRD) Non-Af Amer 67 mL/min >60 [facility] Work Phone: Comment on above: Non- GFR Calc Prostate Specific Antigen Screen 2.04 ng/mL 0.00-4.00 [facility] Work Phone: Comment on above: This test was perfor med using the TPSA assay method for the[facility] chemistry system. Values obtained with differentassay methods cannot be used interchangably.When changing PSA assays in the course of monitoring apatient, additional sequential testing should be carriedout to confirm baseline values. Thyroid Stimulating Hormone (TSH) 1.22 uIU/mL 0.358-3.74 [facility] Work Phone: Platelets bldon 07-12-2021 Platelets (Bld) [#/Vol] 313 10*3/uL 150-450 [facility] Work Phone: Serum or plasma albumin pavithra urement (mass/volume)on 07-12-2021 Albumin [Mass/Vol] 4.0 g/dL 3.2-5.0 [facility] Work Phone: Serum or plasma albumin/glob ulin mass ratioon 07-12-2021 Albumin/Globulin [Mass ratio] 1.1 {ratio} 0.9-2.4 [facility] Work Phone: Serum or plasma calcium pavithra urement (mass/volume)on 07-12-2021 Calcium [Mass/Vol] 8.6 mg/dL 8.5-10.1 [facility] Work Phone: Serum or plasma cholesterol in HDL measurement (mass/volume)on 07-12-2021 Cholesterol in HDL [Mass/Vol] 44 mg/dL [facility] Work Phone: Comment on above: The drugs N-Acetylcy steine and Metamizole may falsely depress this assay. Reference Range HDL <40 mg/dL Low HDL Cholesterol HDL >or= 60 mg/dL High HDL Cholesterol Serum or plasma cholesterol in VLDL measurement (mass/volume)on 07-12-2021 Cholesterol in VLDL [Mass/Vol] 10 mg/dL 5-40 [facility] Work Phone: Serum or plasma creatinine m easurement (mass/volume)on 07-12-2021 Creatinine [Mass/Vol] 1.16 mg/dL 0.70-1.30 [facility] Work Phone: Comment on above: The validity of the calculated GFR & GFRAA in patients over 70 years has not been determined. Clinical correlation is essential. Serum or plasma low density lipoprotein (LDL) cholesterol measurement (mass/volume)on 07-12-2021 Cholesterol in LDL [Mass/Vol] 125 mg/dL 0-130 [facility] Work Phone: Serum or plasma urea nitroge n measurement (mass/volume)on 07-12-2021 Urea nitrogen [Mass/Vol] 21 mg/dL 7-18 [facility] Work Phone: Thin prep Papanicolaou smear with manual screeningon 07-12-2021 Thin prep Papanicolaou smear with manual screening 29 U/L 15-37 [facility] Work Phone: Thin prep Papanicolaou smear with manual screening 5 5-15 [facility] Work Phone: Thin prep Papanicolaou smear with manual screening 7.0 mg/L NO RANGE EST. [facility] Work Phone: Vital Signs Date Time Vital Sign Value Performing Clinician Elkini jerrelly 11-16-2021 09:23-0400 Body temperature 97 [degF] [facility] Work Phone: [facility] Work Phone: 11-16-2021 09:23-0400 Diastolic blood pressure 76 mm[Hg] [facility] Work Phone: [facility] Work Phone: 11-16-2021 09:23-0400 Heart rate 53 /min [facility] Work Phone: [facility] Work Phone: 11-16-2021 09:23-0400 Respiratory rate 16 /min [facility] Work Phone: [facility] Work Phone: 11-16-2021 09:23-0400 SaO2% (BldA) [Mass fraction] 97 % [facility] Work Phone: [facility] Work Phone: 11-16-2021 09:23-0400 Systolic blood pressure 109 mm[Hg] [facility] Work Phone: [facility] Work Phone: 11-16-2021 07:45-0400 Body height 190.5 cm [facility] Work Phone: [facility] Work Phone: 11-16-2021 07:45-0400 Body mass index (BMI) [Ratio] 31.4 kg/m2 [facility] Work Phone: [facility] Work Phone: 11-16-2021 07:45-0400 Body weight 114.13 kg [facility] Work Phone: [facility] Work Phone: 02-18-2018 12:45-0400 Body Temperature 97.2 [degF] [facility] 12:45-0400 BP Diastolic 85 mm[Hg] [facility] 02-18-2018 12:45-0400 BP Systolic 144 mm[Hg] [facility] 02-18-2018 12:45-0400 Pulse (Heart Rate) 66 /min [facility] Y[facility] 02-18-2018 12:45-0400 Pulse Oximetry 94 % [facility] 02-18-2018 12:45-0400 Respiratory Rate 23 /min [facility] 02-18-2018 07:41-0400 BMI (Body Mass Index) 34.19 kg/m2 [facility] 02-18-2018 07:41-0400 Height 190.5 cm [facility] 02-18-2018 07:41-0400 Weight 124.09 kg [facility] Encounters Encounter Date Encounter Type Care Provider Facility Start: 09-15-2024 End: 09-15-2024 ambulatory Marissa OSEGUERA Work Phone: [facility] Work Phone: Start: 09-15-2024 End: 09-15-2024 Patient encounter procedure Afshan Camachof [employer] -Laboratory, [facility] Start: 09-15-2024 End: 09-15-2024 ambulatory Marissa Roth VSC Facility:[facility] Start: 09-11-2024 End: 09-11-2024 ambulatory Marissa Gonzalez [employer] Work Phone: [facility] Work Phone: Start: 09-11-2024 End: 09-11-2024 Patient encounter procedure Afshan Bhanu [employer] DES[employer]-C -Ultrasound, [facility] Work Phone: Start: 09-11-2024 End: 09-11-2024 ambulatory Marissa Roth VSC Facility:[facility] Start: 09-08-2024 End: 09-08-2024 ambulatory Nicolas Colvin RN Work Phone: [facility] [employer] Start: 09-08-2024 End: 09-08-2024 Coordination of care plan Nicolas Colvin RN Work Phone: [facility] [employer] Comment on above: Care Coordination Start: 08-27-2024 End: 08-27-2024 ambulatory Marissahudson Roth [employer]C Work Phone: [facility] Work Phone: Start: 08-27-2024 End: 08-27-2024 Patient encounter procedure [facility] Marissa Roth [employer]APHIC DES[employer]ER-C -Cat Scan, [facility] Work Phone: Start: 08-27-2024 End: 08-27-2024 ambulatory Marissa Roth VSC Facility:[facility] Start: 06-24-2024 End: 06-24-2024 Patient encounter procedure [facility] Marsisa Gonzalez [employer] DES[employer]C -Laboratory, [facility] Start: 06-24-2024 End: 06-24-2024 ambulatory Marissa Roth VSC Facility:[facility] Start: 02-10-2024 End: 02-10-2024 ambulatory AMARILYS SMYTH Facility:[facility] Start: 02-10-2024 End: 02-10-2024 Patient encounter procedure Amarilys Smyth Work Phone: Podiatry Comment on above: Diabetic polyneuropa thy associated with type 2 diabetes mellitus (HCC) (Primary Dx); Hammer toe of left foot; Hammer toe of right foot Start: 12-23-2023 End: 12-23-2023 ambulatory Marissa Roth [facility] Facility:[facility] Start: 06-26-2023 End: 06-26-2023 ambulatory [facility] Work Phone: Start: 06-26-2023 End: 06-26-2023 Patient encounter procedure [facility]-Laboratory Work Phone: Start: 12-20-2022 End: 12-20-2022 ambulatory [facility] Work Phone: Start: 12-20-2022 End: 12-20-2022 Patient encounter procedure [facility] Work Phone: Start: 08-13-2022 [facility] Comment on above: Population Health Na vigation Outreach ([employer] care gap ) Start: 02-08-2022 End: 02-08-2022 Patient encounter procedure Amarilys Smyth Work Phone: Podiatry Comment on above: Diabetic mononeuropa thy associated with diabetes mellitus due to underlying condition (HCC) (Primary Dx); Accessory navicular bone of right foot; Hammer toe of left foot; Hammer toe of right foot Start: 11-16-2021 Non-patient / Non-visit [facility] Work Phone: [facility] Start: 11-16-2021 End: 11-16-2021 Admission to same day surgery center [facility] Work Phone: [facility]-Endoscopy Start: 09-21-2021 ambulatory [facility] Comment on above: Population Health Na vigation Outreach ([employer] care gaps) Start: 08-03-2021 End: 08-03-2021 Patient encounter procedure 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) Start: 02-14-2018 Encounter for other preprocedural examination [facility] Start: 02-14-2018 Encounter for preprocedural cardiovascular examination [facility] Start: 02-14-2018 End: 02-14-2018 Patient encounter [facility] [place] Encounter for other preprocedural examination [facility] Encounter for preprocedural cardiovascular examination [facility] Procedures Date Procedure Procedure Detail Performing Clinician Start: 09-11-2024 Complete ultrasound of kidneys and bladder Marissa Roth [employer] Work Phone: Start: 08-27-2024 CT of chest Marissa silva [employer] Work Phone: Start: 06-24-2024 Measurement of renal function Marissa Roth [employer] Work Phone: Comment on above: GFR Calc Start: 06-24-2024 Microalbuminuria measurement Marissa Roth [employer] Work Phone: Start: 06-24-2024 Prostate specific an tigen measurement Marissa Roth [employer] Work Phone: Comment on above: This test was perfor med using the TPSA assay method for the[employer] chemistry system. Values obtained with differentassay methods cannot be used interchangably.When changing PSA assays in the course of monitoring apatient, additional sequential testing should be carriedout to confirm baseline values. Start: 11-16-2021 End: 11-16-2021 [facility] Work Phone: Start: 08-03-2021 CT of chest Start: 01-09-2017 Adult depression scr eening assessment Therese Toribio MA Start: 04-22-2007 Colonoscopy Therese Maradiaga sa, [place] Plan of Treatment Date Care Activity Detail Author Start: 11-16-2026 Colonoscopy COLONOSCOPY [facility] Start: 11-16-2026 COLORECTAL CANCER SCREENING COLORECTAL CANCER SCREENING [facility] Start: 11-16-2026 Screening for malign ant neoplasm of colon [facility] Start: 02-09-2025 End: 02-09-2025 Patient encounter procedure 02/09/2025 8:00 AM EDT Office Visit Podiatry [address] [place], [place] [id number] Amarilys Smyth [address] [place] [address] 1 year follow up diabetic foot care Podiatry Comment on above: 1 year follow up galileo betic foot care Start: 09-15-2024 Borrelia burgdorferi blot test [facility] Start: 05-13-2024 Advance Directive Discussion Advance Directive Discussion [facility] Start: 01-12-2024 Covid-19 Vaccine ( season) Covid-19 Vaccine ( season) [facility] Start: 01-12-2024 Influenza vaccination Influenza Vacc ine (#1) [facility] Start: 05-13-2023 Advance Directive Discussion Advance Directive Discussion [facility] Start: 01-11-2023 Influenza vaccination INFLUENZ A (Season Ended) [facility] Start: 05-13-2022 ADVANCE DIRECTIVE DISCUSSION ADVANCE DIRECTIVE DISCUSSION [facility] Start: 05-13-2022 DEPRESSION ASSESSMENT DEPRESSION ASS ESSMENT [facility] Start: 04-29-2022 LIPID SCREEN LIPID SCREEN [facility] Start: 2022 Tetanus vaccination [facility] Start: 2022 Urine microalbumin profile [facility] Start: 01-11-2022 [facility] Start: 01-09-2022 PROSTATE CANCER SCREENING DISCUSSION PROSTATE CANCER SCREENING DISCUSSION [facility] Start: 01-09-2022 Prostate specific antigen measurement Prostate Cancer Screening Discussion [facility] Start: 11-16-2021 Patient discharge [facility] Work Phone: Start: 07-15-2021 Screening for malign ant neoplasm of colon Cologuard (FIT-DNA) [facility] Start: 06-16-2021 COVID-19 VACCINE (4 - Booster for Pfizer series) COVID-19 VACCINE (4 - Booster for Pfizer series) [facility] Start: 05-13-2021 ADVANCE DIRECTIVE DISCUSSION ADVANCE DIRECTIVE DISCUSSION [facility] Start: 05-13-2021 DEPRESSION ASSESSMENT DEPRESSION ASS ESSMENT [facility] Start: 12-22-2020 COVID-19 VACCINE (3 - Booster for Pfizer series) COVID-19 VACCINE (3 - Booster for Pfizer series) [facility] Start: 08-22-2020 PNEUMOVAX AGE 65 AND OVER WITH 5YR LOOKBACK (#1) PNEUMOVAX AGE 65 AND OVER WITH 5YR LOOKBACK (#1) [facility] Start: 04-29-2020 DIABETES SCREEN DIABETES SCREEN [facility] Start: 02-13-2020 Pneumococcal vaccination Pneum ococcal Vaccine Age 65+ (1 of 2 - PCV13) [facility] Start: 01-12-2020 Influenza vaccinatio n given Sequential Influenza Vaccine (#1) [facility] Start: 05-03-2018 ANNUAL PCP TEAM PPAP COORDINATOR KIKO DISEASE VISIT ANNUAL PCP TEAM CHRONIC DISEASE VISIT [facility] Start: 04-29-2018 Hepatitis B surface antibody level LDL Cholesterol [facility] Start: 01-11-2018 Influenza vaccination SEQUENTI AL INFLUENZA VACCINE (#1) [facility] Start: 01-09-2018 Adult depression screening assessment DEPRESSION SCREENING [facility] Start: 10-28-2017 Hemoglobin A1c measurement HbA1C [facility] Start: 04-22-2017 Colonoscopy COLONOSCOPY [facility] Start: 04-22-2017 COLORECTAL CANCER SCREENING COLORECTAL CANCER SCREENING [facility] Start: 08-22-2016 Pneumococcal Vaccine : 50+ (2 of 2 - PCV) Pneumococcal Vaccine: 50+ (2 of 2 - PCV) [facility] Start: 08-22-2016 Pneumococcal Vaccine : 65+ (2 of 2 - PCV) Pneumococcal Vaccine: 65+ (2 of 2 - PCV) [facility] Start: 08-22-2016 PNEUMOCOCCAL: 65+ (2 - PCV) PNEUMOCOCCAL: 65+ (2 - PCV) [facility] Start: 2015 RSV Vaccine (1 - Ris k 60-74 years 1-dose series) RSV Vaccine (1 - Risk 60-74 years 1-dose series) [facility] Start: 2005 Administration of he rpes zoster vaccine Zoster Vaccines (1 of 2) [facility] Start: 2005 Screening for malign ant neoplasm of colon [facility] Start: 2005 Screening for malign ant neoplasm of lung Lung Cancer Screening [facility] Start: 2005 SHINGRIX VACCINE (1 of 2) SHINGRIX VACCINE (1 of 2) [facility] Start: 2005 ZOSTER VACCINES (1 of 2) ZOSTE R VACCINES (1 of 2) [facility] Start: 02-13-2000 COLOGUARD (FIT-DNA) COLOGUARD (FIT-D NA) [facility] Start: 02-13-[address] COLONOGRAPHY [facility] Start: 02-13-2000 FECAL OCCULT BLOOD FECAL OCCULT BLOO D [facility] Start: 02-13-2000 Screening for malign ant neoplasm of colon [facility] Start: 02-13-2000 SIGMOIDOSCOPY SIGMOIDOSCOPY [facility] Start: 1973 ANNUAL PCP TEAM PPAP COORDINATOR KIKO DISEASE VISIT ANNUAL PCP TEAM CHRONIC DISEASE VISIT [facility] Start: 1973 Anxiety Screening Anxiety Screening [facility] Start: 1973 BP CONTROLLED (<130/80) BP CONTROLLE D (<130/80) [facility] Start: 1973 Depression Screening Depression Scre ening [facility] Start: 1973 Hepatitis C antibody , confirmatory test Hepatitis C Screening [facility] Start: 1971 COVID-19 Vaccine (1 of 2) COVID-19 Vaccine (1 of 2) [facility] Start: 1970 HIV screening HIV Screening [facility] Start: 1967 Adolescent depressio n screening assessment Depression Screening (PHQ9) [facility] Start: 1965 Diabetic foot examination Diabetic Foot Exam [facility] Start: 1965 Glaucoma screening Dilated Retinal E xam [facility] Start: 1965 Hepatitis B screening Urine Albumin:Creatinine Ratio [facility] Start: 1958 History and physical examination, annual for health maintenance Wellness Visit [facility] Start: 1955 ABDOMINAL AORTIC ANEURYSM SCREENING ABDOMINAL AORTIC ANEURYSM SCREENING [facility] Start: 1955 Abdominal aortic aneurysm screening Abdominal Aortic Aneurysm Screening [facility] Start: 1955 Fall risk assessment Falls Risk Asse ssment [facility] Start: 1955 Prostate specific antigen measurement PSA Level [facility] Start: 1955 US scan of abdominal aorta Abdominal Aortic Ultrasound [facility] Start: 1955 HEPATITIS C SCREENING HEPATITIS C SC MELANY [facility] Start: 1955 Low-dose CT Lung Can cer Screen Low-dose CT Lung Cancer Screen [facility] Start: 1955 Screening colonoscopy [facility] Bacteria identified Aer cx Nom (Unsp spec) [facility] Comment on above: Once for 1 Occurrenc es starting 02/18/2018 Laboratory data interpretation [facility] Nongyn Cytology [facility] Comment on above: Once for 1 Occurrenc es starting 02/18/2018, 1 completed Patient referral [facility] Work Phone: Tissue Exam [facility] Comment on above: Once for 1 Occurrenc es starting 02/18/2018 [facility] Immunization Date Immunization Notes Care Provider Nahomi vo 05-03-2017 influenza virus vacc ine, unspecified formulation Amarilys Cathy Work Phone: [facility] 08-23-2015 pneumococcal polysaccharide vaccine, 23 valent Therese Malu [facility] 02-13-2012 tetanus toxoid, redu muna diphtheria toxoid, and acellular pertussis vaccine, adsorbed [facility] Work Phone: Payers Date Payer Category Payer Self-pay [id number] 2021 Medicare [employer] MEDICARE HU[employer] MEDICARE PPO [id number] 2021-Present [phone] [id number] [place] [address] PPO [id number] 2021 Medicare [employer] MEDICARE [employer] MEDICARE PPO [id number] 2021-Present [phone] [address] [place] [address] PPO [id number] 2021 Medicare (Managed Care) DIAMOND AVENDANO [id number] 2021 Medicare [id number] 2015 Private Health Insurance [id number] Worker's Compensation [id number] Worker's Compensation WORKER'S C [facility] [id number] 2004-Present [id number] 1955 Unknown [id number] 1955 Unknown [id number] Unknown [id number] .[id number] Unknown [id number] Unknown [id number] .[id number] Unknown [id number] .[id number] Unknown [id number] Unknown [id number] Worker's Compensation [phone] Social History Date Type Detail Facility Start: 02-18-2018 End: 11-14-2021 Tobacco smoking status NHIS Current every day smoker [facility] Start: 02-18-2018 End: 04-17-2020 Cigarettes smoked current (pack per day) - Reported [facility] Start: 1955 Sex Assigned At Not on file [facility] Start: 01-09-2017 End: 02-19-2018 Tobacco use and exposure Never used [facility] Start: 02-19-2018 End: 02-10-2024 Alcohol intake Current non-drinker of alcohol (finding) [facility] Start: 09-14-2016 End: 11-14-2021 Tobacco smoking status MAIS Unknown if ever smoked [facility] Start: 1955 Sex Assigned At Male [facility] History of tobacco use Cigarette Smoker [facility] Start: 01-29-2022 End: 02-08-2022 Exposure to SARS-CoV-2 (event) Not sure [facility] Start: 04-17-2020 End: 02-10-2024 Tobacco use panel [facility] National Score (1-10 0), lower number is lower risk Not on file [facility] Start: 08-31-2024 Sex Male (finding) [facility] Goals Date Patient Goal Desired Activity /State Functional Status Date Assessment Result Facility 09-20-2016 Are you deaf, or do you have serious difficulty hearing No 09/20/2016 2:44 PM Dayne Rasmussen MD No [facility] 09-20-2016 Are you blind, or do you have serious difficulty seeing, even when wearing glasses No 09/20/2016 2:44 PM Dayne Rasmussen MD No [facility] 09-20-2016 Do you have serious difficulty walking or climbing stairs No 09/20/2016 2:44 PM Dayne Rasmussen MD [facility] 09-20-2016 Do you have difficul ty dressing or bathing No 09/20/2016 2:44 PM Dayne Rasmussen MD [facility] 09-20-2016 Because of a physica l, mental, or emotional condition, do you have difficulty doing errands alone such as visiting a physician's office or shopping No 09/20/2016 2:44 PM EDT Dayne Dickson MD No [facility] Mental Status Date Assessment Result Facility 11-16-2021 Cognitive function Voice/Name [facility] Work Phone: 09-20-2016 Because of a physica l, mental, or emotional condition, do you have serious difficulty concentrating, remembering, or making decisions No 09/20/2016 2:44 PM EDT Dayne Dickson MD No [facility] Clinical Notes 03-05-2012 to 09-14-2024 Nicolas Colvin RN - 09/08/2024 9:48 AM EDTPatient Amarilys Conte - 02/10/2024 8:11 AM EDTLiza Johnson RN - 02/10/2024 8:02 AM EDTJuanita Whelan - 08/13/2022 1:25 PM EDT Note Date & Type Note Facility 09-14-2024 Radiology Diagnostic study note [facility] Imaging Services [address] [place] [address] Kidney and Bladder MR#: [id number] Acct: [id number] Name: LAN GUADALUPE Rep #: [id number] : 1955 M 69 From: Georgie Triana MD PCP: REBECCA Jensen, CONTRACT GRAPHIC DESIGNER-C Status: REG CLI Study:Kidney and Bladder Date of Exam: 0 09/11/24 Exam# [id number] Ordering Dr: Afshan Drummond CONTRACT GRAPHIC DESIGNER-C ADDENDUM by Dr. Bebo Triana MD on 09/14/24 at 1914 As a technical note, note that spectral Doppler imaging was not performed. END OF ADDENDUM Reading Location: [id number] 09/14/241914 Date cc: OUMAR Drummond; [facility] OUMAR Roth ~* Signed PROCEDURE: KIDNEY AND BLADDER (USKI), 09/11/2024 REASON FOR EXAM: CYST OF KIDNEY TECHNIQUE: Grayscale and color/spectral doppler ultrasound of the kidneys and bladder was performed. COMPARISON: 11/07/2016 ; note that images only are available for review, the report is not available at the time of the dictation. FINDINGS: Right kidney: 11.9 cm in length. Slightly echogenic appearance suspected. 11 x12 x 7 mm nonobstructing intrarenal calculus. Cysts up to 3.2 x 3.7 x 4.0 cm mid to superiorly. No visualized calculus or hydronephrosis. Left kidney: 14.0 cm in length. Slightly echogenic appearance suspected. Smallechogenic nonshadowing foci up to 6 x 7 x 5 mm, possible nonobstructing intrarenal calculus versus prominent renal sinus fat. Cysts up to 7.1 x 6.2 x 4.9 cm superiorly, largest with a probable thin internal septation. No visualized calculus or hydronephrosis. Bladder: Unremarkable. Estimated volume 277 mL. Other: Suspect echogenic appearance of the liver which may indicate steatosis.. US/Kidney and Bladder IMPRESSION: 1. Bilateral renal cysts up to 7.1 cm on the LEFT, largest with suggestion of aninternal septation. 2. Correlate for clinical and laboratory evidence of chronic medical liver and renal disease. 3. Additional description as above. Reading Location: [facility] CC: OUMRA Drummond; [facility] OUMAR Roth ~ Wheel Grinder: Signed [facility] 09-08-2024 Note HNO ID: [id number] Author: NICOLAS COLVIN RN Service: ? Author Type: Registered Nurse Type: Progress Notes Filed: 09/08/2024 09:48 Note Text: Value Based Care Coordination Chart Review Provider Action / FYI: Upon review of patient chart, the patient is excluded from Chronic Disease Management Patient is not a candidate for CDM at this time and placed in the following status: Deferred-OON Action taken: No action needed . Nicolas Colvin RN September 08, 2024 9:48 AM [facility] 09-08-2024 History of Present illness Narrative Value Based Care Coordination Chart Review Provider Action / FYI: Upon review of patient chart, the patient is excluded from Chronic Disease Management Patient is not a candidate for CDM at this time and placed in the following status: Deferred-OON Action taken: No action needed . Nicolas Colvin RN September 08, 2024 9:48 AM documented in this encounter [facility] 09-08-2024 Note Patient Outreach (AM [facility]) LAN GUADALUPE ([id number]) 1955 Date Time Provider Department 09/08/24 NICOLAS COLVIN [facility] During your visit today, we recorded the following information about you: Nicolas Colvin RN 09/08/2024 9:48 AM Signed Value Based Care Coordination Chart Review Provider Action / FYI: Upon review of patient chart, the patient is excluded from Chronic Disease Management Patient is not a candidate for CDM at this time and placed in the following status: Deferred-OON Action taken: No action needed . Nicolas Colvin RN September 08, 2024 9:48 AM Allergies As of Date: 09/08/2024 Noted Allergy Reaction LIPITOR (ATORVASTATIN) 05/02/2005 Comments: MUSCEL SORENESS PRAVASTATIN 05/23/2016 17 - Myalgia SIMVASTATIN 05/23/2016 17 - Myalgia ZIAC (BISOPROLOL-HYDROCHLOROTHIAZ*2016 14 - Other: See Comments Comments: Did not feel well on this, but does tolerate the HCTZ Date Reviewed: 02/10/2024 Reviewed by: Liza Johnson, RN - Fully Assessed Reason for Visit: Care Coordination [3491] Prescriptions as of 09/08/2024 - gemfibrozil (LOPID) 600 mg tablet Take 600 mg by mouth two times a day before meals. - metFORMIN (GLUCOPHAGE) 500 mg tablet Take [...] 1 tablet by mouth once daily. - [place]-3 Fatty Acids-Vitamin E (FISH OIL) 1,000 mg cap Take 1 capsule by mouth. - Geriatric Multivitamins-Min tab Take by mouth. Problem List As Of Date 09/08/2024 Noted Resolved Mixed hyperlipidemia [E78.2] 08/19/2015 Tinnitus [...] of urine [N39.41] 01/09/2017 Encounter Status:Closed by NICOLAS COLVIN on 09/08/24 [facility] 08-27-2024 Radiology Diagnostic study note [facility] Imaging Services [address] [place] [address] Lung Screening MR#: [id number] Acct: [id number] Name: LAN GUADALUPE Rep #: [id number] : 1955 [place] 69 From: Burak Hunter MD PCP: REBECCA Jensen, CONTRACT GRAPHIC DESIGNER-C Status: REG CLI Study:Low Dose CT Lung Screening Date of Exam : 08/27/24 Exam# [id number] Ordering Dr: Marissa Roth CONTRACT GRAPHIC DESIGNER-C PROCEDURE: LOW DOSE CT LUNG SCREENING 08/27/2024 REASON FOR EXAM: NICOTINE DEPENDENCE, CIGARETTES, UNCOMPLICATED Current smoker. Patient has smoked 1 pack per day for 50 years. TECHNIQUE: Low Dose CT Lung screening without contrast. Coronal and Sagittal reconstructionseries were provided. One or more dose reduction techniques were used (e.g., Automated exposure control, adjustment of the mA and/or kV according to patient size, use of iterative reconstruction technique). REFERENCE LINK: [facility] Lung-RADS RADIATION DOSE SUMMARY: CTDlvol: 4.02 mGy DLP: 134.91 mGycm COMPARISON: None. FINDINGS: PULMONARY NODULES: (Only nodules >3mm are reported) Nodules described below are on series 1 unless otherwise specified. Pulmonary Nodules: No suspicious nodules seen. Hardware:None Lymph Nodes:Small benign-appearing mediastinal lymph nodes. Heart and Vasculature:Coronary artery calcifications are noted.Atherosclerotic calcifications of the thoracic aorta. Thoracic aorta and pulmonary arteries have normal contours; noncontrast technique limits evaluation. Coronary Artery Calcifications: Present Lungs and Airways: Mild emphysematous changes are present. Pleura:Unremarkable Upper Abdomen:There is a 2.6 cm low-density rounded nodule in the right adrenal gland. This most likely represents adrenal adenoma. There is a 3.5 cm hypodense nodule in the anterior superior pole of the left kidney. Correlation with ultrasound recommended for further evaluation. Bones:Degenerative changes of the thoracic spine. CT/Low Dose CT Lung Screening IMPRESSION: Findings suggestive of right adrenal adenoma. Hypodense nodule in the upper pole of the left kidney. Assessment is not complete on this examination. Correlation with ultrasound recommended. Coronary artery calcification (CAC) is is present Lung-RADS Category: 2 BENIGN (BASED ON IMAGING FEATURES OR INDOLENT BEHAVIOR). RECOMMEND 12-MONTH SCREENING LDCT. Other Significant Findings: None. Reading Location: [facility] CC: [facility] OUMAR Roth ~ Wheel Grinder: Signed [facility] 02-10-2024 Instructions Amarilys Smyth - 02/10/2024 8:15 AM EDT Diabetes Foot Care Instructions When [...] (or decreased sensation in your feet) a guard dance hall should always cut your toenails. Be Careful [...] Go to your health care provider or guard dance hall to treat these conditions. documented in this encounter [facility] 02-10-2024 Note HNO ID: [id number] Author: AMARILYS SMYTH, ? Service: ? Author Type: Physician Type: Progress Notes Filed: 02/10/2024 08:15 Note Text: Initial Office Visit Subjective: This 68 year old male presents to clinic for diabetic foot check. Patient has no complaints. Patient admits to being diabetic for 4-5 years now. Patient +B/T/N in feet at this time. Patient -pain in legs when walking. No other pedal complaints at this time. No change in medications or medical history since last visit. PAIN EVALUATION No data found in the last 1 encounters. Hemoglobin A1C (%) Date Value 04/29/2017 6.1 01/09/2017 5.9 09/17/2016 6.1 06/26/2016 6.2 05/16/2016 6.3 PCP: Rocio Iyer (Inactive) PAST MEDICAL HISTORY Diagnosis Date Elevated prostate [...] NOS 05/27/2006 Current Outpatient Medications Medication Sig gemfibrozil (LOPID) 600 mg tablet Take 600 mg by mouth two times a day before meals. metFORMIN (GLUCOPHAGE) 500 mg tablet Take 500 [...] daily. (Patient not taking: Reported on 02/08/2022) [place]-3 Fatty Acids-Vitamin E (FISH OIL) 1,000 mg cap Take 1 capsule by mouth. (Patient not taking: Reported on 02/08/2021) Geriatric Multivitamins-Min tab Take by mouth. (Patient [...] History Tobacco Use Smoking status: Every Day Current packs/day: 1.00 Average packs/day: 1 pack/day for 47.0 years (47.0 ttl pk-yrs) Types: Cigarettes Smokeless tobacco: Never Vaping Use Vaping status: Never Used Substance Use Topics Alcohol use: No Drug [...] Patient presents to clinic ambulating in [facility] Constitutional: Pt is a well developed 68 year old male who is alert, oriented, cooperative and in no apparent distress. Eyes: Following du (more content not included)... [facility] 02-10-2024 History of Present illness Narrative Initial Office Visit Subjective: This 68 year old male presents to clinic for diabetic foot check. Patient has no complaints. Patient admits to being diabetic for 4-5 years now. Patient +B/T/N in feet at this time. Patient -pain in legs when walking. No other pedal complaints at this time. No change in medications or medical history since last visit. PAIN EVALUATION No data found in the last 1 encounters. Hemoglobin A1C (%) Date Value 04/29/2017 6.1 01/09/2017 5.9 09/17/2016 6.1 06/26/2016 6.2 05/16/2016 6.3 PCP: Rocio Iyer (Inactive) PAST MEDICAL HISTORY Diagnosis Date Elevated prostate [...] NOS 05/27/2006 Current Outpatient Medications Medication Sig gemfibrozil (LOPID) 600 mg tablet Take 600 mg by mouth two times a day before meals. metFORMIN (GLUCOPHAGE) 500 mg tablet Take 500 [...] daily. (Patient not taking: Reported on 02/08/2022) [place]-3 Fatty Acids-Vitamin E (FISH OIL) 1,000 mg cap Take 1 capsule by mouth. (Patient not taking: Reported on 02/08/2021) Geriatric Multivitamins-Min tab Take by mouth. (Patient [...] History Tobacco Use Smoking status: Every Day Current packs/day: 1.00 Average packs/day: 1 pack/day for 47.0 years (47.0 ttl pk-yrs) Types: Cigarettes Smokeless tobacco: Never Vaping Use Vaping status: Never Used Substance Use Topics Alcohol use: No Drug [...] Patient presents to clinic ambulating in [facility] Constitutional: Pt is a well developed 68 year old male who is alert, oriented, [...] the 5.07 SWM bilateral. Vibratory sensation is decreased at the hallux bilateral. + Significant neurological defecits. Derm: Inspection and palpation performed. Nails 1-5 b/l are normal in length and thickness. Skin is of normal turgor and texture. Hyperkeratosis noted to not present. NO ulcerations, scars, verruca or other lesions noted. Ortho: Ankle joint DF is full with the knee extended and full with knee flexed. No pain or crepitus noted. STJ, MTJ ROM are full and free of pain or crepitus. Muscle strength is 5/5 for dorsiflexors, plantarflexors, inverters, everters. Digital deformities include hammertoes of lesser toes. Assessment: (E11.42) Diabetic polyneuropathy associated with type 2 diabetes mellitus (HCC) (primary encounter diagnosis) (M20.42) Hammer toe of left foot (M20.41) Hammer toe of right foot Plan: 1. Patient was seen and evaluated. 2. Patient was instructed on the continued importance of diabetic foot care along with proper diet and keeping their blood sugar under control to prevent complications. Patient to avoid barefoot walking, wear good shoes and inspect feet daily Instructions given both oral and written. 3. Discussed hammertoes of b/l feet. Contineu with wider shoes. Offered diabetic shoes. He is inclined to continue with regular shoes. Amarilys Smyth DPM Patient presents with: Left Foot - Established Patient, Follow Up, Diabetic Foot Check Right Foot - Established Patient, Follow Up, Diabetic Foot Check Patient presents for 1 year follow up diabetic foot check. SHAN 02/09/24 documented in this encounter [facility] 02-10-2024 Note HNO ID: [id number] Author: LIZA JOHNSON RN Service: ? Author Type: Registered Nurse Type: Progress Notes Filed: 02/10/2024 08:15 Note Text: Patient presents with: Left Foot - Established Patient, Follow Up, Diabetic Foot Check Right Foot - Established Patient, Follow Up, Diabetic Foot Check Patient presents for 1 year follow up diabetic foot check. [facility] 02/09/24 [facility] 08-13-2022 History of Present illness Narrative POPULATION [...] Product Type: PPO / Navigation Signature: Juanita Whelan August 13, 2022 1:25 PM documented in this encounter [facility] 02-08-2022 History of Present illness Narrative Per Dr. Smyth, Lan was provided with original powerstep inserts, size [...] daily. (Patient not taking: Reported on 02/08/2022) [place]-3 Fatty Acids-Vitamin E (FISH OIL) 1,000 mg [...] Procedure Laterality Date COLONOSCOP W/ OR W/O [facility] SPEC 04/22/07 HEMORRHOID;BAND LIGAT, SNGL/MUL 1990 Hemorrhoidectomy HEMORRHOIDECTOMY 03/26/2012 LAP REPAIR INTIAL INGUINAL HERNIA 08/28/07 INCARCERATED DIRECT LIH PAST SURGICAL HISTORY OF 2003 bladder repair/urether repair, PAST SURGICAL HISTORY OF 2003 ORIF Pelvic Fracture - Crush injury - Semi Truck REPAIR INCIS HERNIA W MESH 02/08/09 REPAIR INCISIONAL HERNIA,REDUCIBLE 02/08/09 RPR UMBIL SAHLEY BLOCK <5 YR 05/26/2009 SIGMOIDOSCOPY FLEX DIAG [...] Objective: Patient presents to clinic ambulating in [facility] Constitutional: Pt is a well [...] Amarilys Smyth DPM documented in this encounter [facility] 02-08-2022 Instructions Amarilys Smyth - 02/08/2022 8:47 [...] (or decreased sensation in your feet) a guard dance hall should always cut your toenails. Be Careful [...] Go to your health care provider or guard dance hall to treat these conditions. Powerstep Original Full length. Can purchase at [employer] here in [employer], [employer] in [place] or [place]. Also can find in [employer] in [facility]. Powersteps can also be purchased online, starting [...] fits well together documented in this encounter [facility] 09-21-2021 History of Present illness Narrative POPULATION HEALTH NAVIGATION OUTREACH Action/I Left message for pt to call to [...] 2021 9:57 AM documented in this encounter [facility] 03-05-2012 History of Past i llness Narrative Problem Noted Date Resolved Date Hemorrhoids 03/05/2012 08/23/2015 Urethral stricture unspecified 05/27/2006 0 08/23/2015 Impotence of organic origin 08/01/200508/11 documented as of this encounter (statuses as of 09/21/2021) [facility] History of Past illness Narrative* Problem Noted Date Resolved Date Hemorrhoids 03/05/2012 08/23/2015 Urethral stricture unspecified 05/27/2006 0 08/23/2015 Impotence of organic origin 08/01/200508/11 documented as of this encounter (statuses as of 02/08/2022) [facility] History of Past illness Narrative* Problem Noted Date Resolved Date Hemorrhoids 03/05/2012 08/23/2015 Urethral stricture unspecified 05/27/2006 0 08/23/2015 Impotence of organic origin 08/01/200508/11 documented as of this encounter (statuses as of 08/13/2022) [facility] noteNo assessment information availableWBrown [facility] Work Phone: Evaluation note* Diagnosis Onset Date Resolution Status Encounter for screening for malignant neoplasm of colo n [facility] Work Phone: Evaluation note* Diagnosis Diabetic mononeuropathy associated with diabetes mellitus due to underlying condition (HCC)- Primary Accessory navicular bone of right foot Hammer toe of left foot Hammer toe of right foot [facility]* Diagnosis Diabetic polyneuropathy associated with type 2 diabetes mellitus (HCC)- Primary Hammer toe of left foot Hammer toe of right foot [facility] (narrative)No reason for referral information availableWBrown Memorial Hospital Work Phone: Discharge Instructions The following attachments cannot be sent through Care Everywhere. * Nausea and Vomiting: After Surgery (Turkmen) * Pain Post-Surgery: Acute (Turkmen) * Post-op Infection (Turkmen) * Sedation (Turkmen) in this encounter Assessments Diagnosis Hematuria due to chronic cys titis - Primary Summary Purpose Family History No Family History Records FoundNo Family History Records FoundNo Family History Records Found Advance Directives No Advanced Directives Records Found Advance Directive Response Recorded Date/ Time Living Will No November 14, 2021 1 1:02am Power of Automobile Radiator Mechanic No November 14, 2021 11:02am Advance Directive Response Recorded Date/ Time Living Will No November 14, 2021 1 0:02am Power of Automobile Radiator Mechanic No November 14, 2021 10:02am Chief Complaint and Reason for Visit Chief Complaint NICOTINE DEPENDENCE Chief Complaint NICOTINE DEPENDENCE Reason for Visit Encounter for screen ing for malignant neoplasm of colon Chief Complaint Admit Date NICOTINE DEPENDENCE August 27, 2024 7:4 1am Chief Complaint Admit Date NICOTINE DEPENDENCE August 27, 2024 7:4 1am LT KIDNEY NODULE NOTED ON LUNG CT September 11:36am Additional Source Comments Chong Underwood MD - 02/18/2018 9:01 AM EDT H&P Notes (unrecognized sect ion and content) HISTORY AND PHYSICAL UPDATE Patient Name: Lan Guadalupe Admit Date: [id number] MR #: [id number] : 1955 Physicians: Fermín Jimenez MD (Family); No ref. provider found (Referring) Chief Complaint/Reason for Visit: heamtruia History of Present Illness: Lan Guadalupe is a 63 y.o. male presenting [...] is his spokesperson and has his belongings. [facility] Surgical Department Patient Instructions for [facility]: Prior to surgery: Please bathe the night [...] if desired. When you arrive at the [facility] on the day of your surgery, please note that rn transitional care parking is free. Pull up to the [...] of your surgery preparation process here at [facility]. It will provide you with additional important [...] content) No Status Records FoundNo Status Records FoundNo Status Records Found INFORMATION SOURCE (unrecogn ized section and content) DATE CREATED AUTHOR 03/20/2018 [facility] DATE CREATED AUTHOR AUTHOR'S ORGANIZ ATION 09/09/2024 [facility] DATE CREATED AUTHOR AUTHOR'S ORGANIZ ATION 09/22/2024 [facility] Goals (unrecognized section and content) Goals may be documented in a n alternate sectionGoals may be documented in an alternate sectionGoals may be documented in an alternate sectionGoals may be documented in an alternate sectionGoals may be documented in an alternate sectionGoals may be documented in an alternate section Source Comments (unrecognize d section and content) In the event this informatio n is protected by the Federal Confidentiality of Alcohol and Drug Abuse Patient Records regulations: The Federal rules restrict any use of the information to criminally investigate or prosecute any alcohol or drug abuse patient.[facility] Hospital[facility] the event this information is protected by the Federal Confidentiality of Alcohol and Drug Abuse Patient Records regulations: The Federal rules restrict any use of the information to criminally investigate or prosecute any alcohol or drug abuse patient.[facility] HospitalIn the event this information is protected by the Federal Confidentiality of Alcohol and Drug Abuse Patient Records regulations: The Federal rules restrict any use of the information to criminally investigate or prosecute any alcohol or drug abuse patient.[facility] HospitalIn the event this information is protected by the Federal Confidentiality of Alcohol and Drug Abuse Patient Records regulations: The Federal rules restrict any use of the information to criminally investigate or prosecute any alcohol or drug abuse patient.[facility] HospitalIn the event this information is protected by the Federal Confidentiality of Alcohol and Drug Abuse Patient Records regulations: The Federal rules restrict any use of the information to criminally investigate or prosecute any alcohol or drug abuse patient.[facility] Reason for Visit (unrecogniz ed section and content) Reason Onset Date Comments Population Health Navigation Outreach 09/21/2021 human[employer] care gaps Reason Comments Established Patient Diabetic Foot Care Reason Onset Date Comments Population Health Navigation Outreach 08/13/2022 [employer] care gap Reason Comments Established Patient Follow Up Diabetic Foot Check Reason Onset Date Comments Care Coordination 09/08/2024 Care Teams (unrecognized sec tion and content) Coil Inspector Relationship Specialty Start Date End Date Adia Cochran CNP [address] [place], [place] [id number] Referring Internal Medicine 01/25/21 Coil Inspector Relationship Specialty Start Date End Date Adia Cochran CNP [address] [place] [address] Referring Internal Medicine 01/25/21 Coil Inspector Relationship Specialty Start Date End Date Rocio Iyer PCP - General 08/13/22 Adia Cochran [employer] [address] [place], [place] [address] Referring Internal Medicine 01/25/21 Team Status: Active Member Role Status Dates Dr. Dayne Dickson MD Family Provider Active [facility] Primary Care Provider A ctive Team Status: Inactive Member Role Status Dates [facility] Primary Care Provider A ctive Marissa Roth CONTRACT GRAPHIC DESIGNER, CONTRACT GRAPHIC DESIGNER-C Attending Provider, Referrin g Provider Active Team Status: Inactive Member Role Status Dates [facility] Primary C are Provider, Attending Provider, Referring Provider Active Marissa Roth CONTRACT GRAPHIC DESIGNER, CONTRACT GRAPHIC DESIGNER-C Other Provider Active Coil Inspector Relationship Specialty Start Date End Date Rocio Iyer [address] [place] [address] PCP - General 08/13/22 Adia Cochran [employer] [address] [place], [place] [address] Referring Internal Medicine 01/25/21 Team Status: Active Member Role Status Dates Marissa Gonzalez FERNANDEZ, CONTRACT GRAPHIC DESIGNER-C Primary Care Provider Activ e Team Status: Inactive Member Role Status Dates Marissa Gonzalez FERNANDEZ, CONTRACT GRAPHIC DESIGNER-C Primary Care Provider Activ e Start: June 24, 2024 End: June 24, 2024 Marissa FERNANDEZ, CONTRACT GRAPHIC DESIGNER-C Attending Provider Active Start: June 24, 2024 End: June 24, 2024 Team Status: Inactive Member Role Status Dates Marissa Roth REBECCA, CONTRACT GRAPHIC DESIGNER-C Primary Care Provider Activ e Start: August 27, 2024 End: August 27, 2024 Marissa Gonzalez FERANNDEZ, CONTRACT GRAPHIC DESIGNER-C Attending Provider Active Start: August 27, 2024 End: August 27, 2024 Marissa FERNANDEZ, CONTRACT GRAPHIC DESIGNER-C Referring Provider Active Start: August 27, 2024 End: August 27, 2024 Coil Inspector Relationship Specialty Start Date End Date Rocio Iyer [address] [place] [address] PCP - General 08/13/22 Adia Cochran, [employer] [address] [place] [address] Referring Internal Medicine 01/25/21 Team Status: Inactive Member Role Status Dates Marissa Roth REBECCA, CONTRACT GRAPHIC DESIGNER-C Primary Care Provider Activ e Start: September 11, 2024 End: September 11, 2024 Afshan Drummond NP-C Attending Provider Active Start: September 11, 2024 End: September 11, 2024 Afshan Drummond NP-C Referring Provider Active Start: September 11, 2024 End: September 11, 2024 Team Status: Active Member Role Status Dates Marissa Roth REBECCA, CONTRACT GRAPHIC DESIGNER-C Primary Care Provider Activ e Start: September 15, 2024 Afshan Drummond CONTRACT GRAPHIC DESIGNER-C Attending Provider Active Start: September 15, 2024 Team Status: Inactive Member Role Status Dates Marissa Gonzalez FERNANDEZ, CONTRACT GRAPHIC DESIGNER-C Primary Care Provider Activ e Start: September 15, 2024 End: September 15, 2024 Afshan Drummond CONTRACT GRAPHIC DESIGNER-C Attending Provider Active Start: September 15, 2024 End: September 15, 2024 FOR RECORDS PERTAINING TO PATIENTS WHO ARE [...] BE BASED ON THE PRIMARY CLINICAL RECORDS. [facility]. provides no warranty or guarantee of the accuracy or completeness of information in this document.
[2024-12-22 12:29] LABS: Hematocrit 48.7 % (40-54); Hemoglobin 16.3 g/dL (13.0-16.5); Immature Granulocytes Count 0.030 X10^3/uL (0.0-0.0); Mean Corp Hgb Conc 33.5 g/dL (32-36); Mean Corpuscular Volume 93.8 fL (80-94); Mean Platelet Vol. 10.1 fl (6.2-12.0); NRBC Flagged by Analyzer 0 % (0-5); Platelet Count 310 K/mm3 (150-450); RBC Distribution Width CV 12.8 % (11.6-14.6); RBC Distribution Width SD 44.2 fl (35.1-43.9); Red Blood Count 5.19 M/mm3 (4.6-6.2); White Blood Count 8.1 K/mm3 (4.4-11.0)
[2024-12-22 12:39] LABS: Microalbumin,Random Urine < 12.0 mg/L (<20 mg/L)
[2024-12-22 12:40] LABS: AST(SGOT) 24 U/L (<=37); Alanine Aminotransfer ALT/SGPT 23 U/L (<=46); Albumin, Serum 4.4 g/dL (3.4-4.8); Alkaline Phosphatase 57 U/L (40-129); Anion Gap 14 (5-15); BUN 19 mg/dL (4-19); BUN/Creat Ratio 15.1 RATIO (10-20); Calcium,Total 9.5 mg/dL (7.6-11.0); Carbon Dioxide 20.9 mmol/L (21.0-32.0); Chloride 105 mmol/L (98-108); Globulin 2.7 g/dL (2.2-4.2); Glucose 119 mg/dL (70-99); Potassium 4.1 mmol/L (3.3-5.1)
== END | disposition home or self-care (01) ==
LOC: VSLAB 08:41
PROVIDERS: PCP Nurse Practitioner Family; Visit Provider Nurse Practitioner Family
DX: E11.9 Type 2 diabetes mellitus without complications (principal)
CPT/HCPCS: 36415; 80053; 82043; 85025